=== PATIENT | male | born 1945 | race Caucasian/White ===

== ENCOUNTER 2021-09-29 09:44 | Emergency (ER) | payer MEDICARE, SELFPAY ==
[2021-09-29] VITALS (19 sets, daily range): BP systolic 142–163; BP diastolic 54–102; PULSE 55–78; RESP 12–20; TEMP 36.3; O2SAT 94–99
--- NOTE | ~2021-09-29 | CT_ITS ---
EXAMINATION: CT brain wo con DATE: 09/29/2021 10:54 INDICATION: Increasing confusion TECHNIQUE: Computed tomography (CT) of the head was performed without intravenous contrast. The dose- length product was 605.33 mGy-cm. Automated exposure control and iterative reconstruction technique w ere employed. COMPARISON: None FINDINGS: There is a focal parenchymal hemorrhage at the right parietal vertex. No significant mass e ffect. Mild generalized atrophy. There are scattered mild periventricular and subcortical white matte r changes, most likely related to small vessel ischemic disease (microangiopathy). No ventriculomegal y or midline shift. There is intracranial atherosclerosis. No depressed skull fracture. Paranasal sin uses and mastoids are pneumatized. IMPRESSION: 1. Focal parenchymal hemorrhage near the right parietal vertex. Dr. Michael Prieto discussed with Dr. Nilsa Hargrove PA-C at 09/29/2021 11:17 CDT. Reviewed, dictated and finalized at location A. IMPRESSION: 1. Focal parenchymal hemorrhage near the right parietal vertex. Dr. Michael Prieto discussed with Dr. Nilsa Hargrove PA-C at 09/29/2021 11:1 7 CDT.
--- NOTE | 2021-09-29 09:59 | ECG_ITS ---
Measurements Intervals [place] Rate: 57 P: 40 FL: 189 QRS: -16 QRSD: 107 T: 134 QT: 475 QTc: 466 Interpretive Statements SINUS BRADYCARDIA WITH FREQUENT SUPRAVENTRICULAR PREMATURE COMPLEXES LEFT VENTRICULAR HYPERTROPHY AND ST-T CHANGE [VOLTAGE CRITERIA PLUS ST/T ABNORMALITY] NO PREVIOUS ECG AVAILABLE FOR COMPARISON Electronically Signed On 09-29-2021 11:09:13 CDT by Darrian Orellana M.D.
[2021-09-29 10:09] LABS: Basophils Absolute Auto 0.1 K/mm3 (0.0-0.1); Basophils Percent Auto 0.6 % (0.2-1.2); Eosinophils Absolute Auto 0.1 K/mm3 (0-0.3); Eosinophils Percent Auto 1.1 % (0-4.4); Hematocrit 47.3 % (42.0-52.0); Hemoglobin 15.5 g/dL (14.0-18.0); Immature Granulocyte Absolute 0.04 K/mm3 (0.00-0.031); Immature Granulocyte Percent A 0.4 % (0-0.5); Lymphocytes Absolute Auto 0.78 K/mm3 (0.9-3.2); Lymphocytes Percent Auto 7.6 % (18.3-44.2); Mean Corpuscular HGB Conc 32.8 g/dl (32-36); Mean Corpuscular Hemoglobin 29.2 pg (26-34); Mean Corpuscular Volume 89.1 fl (80-100); Monocytes Absolute Auto 0.6 K/mm3 (0.1-0.6); Monocytes Percent Auto 5.8 % (2.6-8.5); Neutrophils Absolute Auto 8.7 K/mm3 (1.3-6.7); Neutrophils Percent Auto 84.5 % (45.5-73.1); Platelet Count Result 213 k/mm3 (150-375); Red Blood Count 5.31 M/mm3 (4.6-6.20); Red Cell Distribution Width 14.6 % (11.5-14.5); White Blood Count 10.2 K/mm3 (4.5-10.0)
--- NOTE | 2021-09-29 10:10 | ED.AMS ---
HPI - Altered Mental Status General Chief Complaint: Altered Mental Status <Nilsa Hargrove PA-C - Last Filed: 09/29/21 17:25> Stated Complaint: Altered Mental Status <Nilsa Hargrove PA-C - Last Filed: 09/29/21 17:25> Time Seen by Provider: 09/29/21 09:57 <Nilsa Hargrove PA-C - Last Filed: 09/29/21 17:25> History of Present Illness HPI narrative: Patient is a 76-year-old male with a history of diabetes, hypertension, sleep apnea here with his and daughter for evaluation of altered mental status today. History obtained from as patient is not answering questions. states that this morning patient was in the shower for prolonged time, and she found him in the kitchen completely naked dripping wet. He was not answering questions or responding to her, so she brought him in for evaluation. Patient has been reportedly experiencing intermittent episodes of confusion over the past several months or so, and yesterday it was increased from usual. states that patient and her were driving, and patient was not understanding her directional cues and was visibly upset that he was not understanding them. She reports that he has been congested recently, but denies significant preceding illness. Patient ANO x0. <Nilsa Hargrove PA-C - Last Filed: 09/29/21 17:25> Related Data Home Medications: Home Medications Medication Instructions Recorded Confirmed cholecalciferol (vitamin D3) 50 2,000 unit PO DAILY 03/10/19 09/29/21 mcg (2,000 unit) tablet fexofenadine 180 mg tablet 180 mg PO DAILY 03/10/19 09/29/21 (Amy Allergy) xampfucwsvrt-hui-vfubf acid-vit 1 tablet PO DAILY 03/10/19 09/29/21 K-lycop 400 mcg-20 mcg-370 mcg tablet (Men's 50 Plus Multivitamin) saw palmetto 450 mg capsule 450 mg PO BID 03/10/19 09/29/21 nifedipine 90 mg tablet,extended 90 mg PO DAILY 03/14/20 09/29/21 release potassium 99 mg tablet 99 mg PO BID 07/24/21 09/29/21 <TAWANDA Grayson Last Filed: 09/29/21 17:25> Allergies/Adverse Reactions: Allergies Allergy/AdvReac Type Severity Reaction Status Date / Time Penicillins Allergy Unknown Rash Verified 01/11/20 11:27 <Nilsa Hargrove PA-C - Last Filed: 09/29/21 17:25> Review of Systems Review of Systems: ROS unobtainable: Yes unobtainable due to mental status <Nilsa Hargrove PA-C - Last Filed: 09/29/21 17:25> PMFSH Past Medical History Medical History: Medical History Allergies Chicken pox Elevated PSA GERD (gastroesophageal reflux disease) Heart murmur History of hemorrhoids History of pertussis History of tremor HTN (hypertension) Hypokalemia Kidney stones Left ventricular hypertrophy Measles Mumps Overweight Pneumonia Shingles <Nilsa Hargrove PA-C - Last Filed: 09/29/21 17:25> Surgical History Surgical History: Surgical History H/O hernia repair H/O rotator cuff surgery <Nilsa Hargrove PA-C - Last Filed: 09/29/21 17:25> Family History Family History: Family History Father Cerebrovascular accident Mother Heart problem Tremor <Nilsa Hargrove PA-C - Last Filed: 09/29/21 17:25> Social History Social History: Social History Smoking status: Never smoker Smoking end date: 04/20/70 Alcohol intake: never <Nilsa Hargrove PA-C - Last Filed: 09/29/21 17:25> Exam Narrative: APPEARANCE: Well-nourished. Head: normocephalic and atraumatic. EYES: PERRLA/EOMI, conjunctivae clear NOSE: No nasal drainage EARS: External ear normal in appearance THROAT: Oropharynx is clear. Mucous membranes are moist. NECK: Supple. No adenopathy, no masses. RESPIRATORY: Airway patent, respirations nonlabored.
[2021-09-29 10:18] LABS: Alanine Aminotransferase 15 U/L (6-50); Albumin Level 4.5 g/dL (3.5-5.1); Alkaline Phosphatase 80 U/L (38-126); Anion Gap 8 mmol/L (8-16); Aspartate Amino Transferase 21 U/L (17-59); Bilirubin,Total 0.7 mg/dL (0.2-1.3); Blood Urea Nitrogen 33 mg/dL (9-20); Calcium 9.2 mg/dL (8.4-10.2); Carbon Dioxide 26 mmol/L (22-30); Chloride 107 mmol/L (98-107); Estimated Glomerular Filt Rate 49; Glucose 115 mg/dL (65-110); Potassium 3.3 mmol/L (3.4-5.0); Sodium 141 mmol/L (137-145)
[2021-09-29 10:27] LABS: INR 1.1; Prothrombin Time 13.6 Seconds (11.1-14.7)
[2021-09-29 10:28] LABS: Partial Thromboplastin Time 27.8 SECONDS (22.3-36.8)
[2021-09-29 10:40] LABS: Magnesium 1.9 mg/dL (1.6-2.3); Phosphorus 4.4 mg/dL (2.5-4.5)
[2021-09-29 10:53] LABS: Troponin I 0.025 ng/mL (0.000-0.034)
--- NOTE | 2021-09-29 11:18 | PC.NURSE ---
Provider made aware of pt c/o all over pain.
--- NOTE | 2021-09-29 11:29 | PC.NURSE ---
Pt and family made aware of need to transfer. In agreement
[2021-09-29 11:34] LABS: Appearance Urine Clear (Clear); Bilirubin Urine Negative (Negative); Blood Urine Negative (Negative); Color Urine Yellow (Yellow); Glucose Urine UA Negative (Negative); Ketones Urine Negative (Negative); Leukocyte Esterase Ur 1+ LEU/UL (Negative); Nitrate Urine Negative (Negative); Protein Urine 1+ mg/dL (Negative); Urobilinogen Urine 0.2 mg/dL (<2.0); pH Urine 5.5 (5.0-9.0)
[2021-09-29 11:46] LABS: Bacteria Urine Trace /hpf; Mucus Urine Rare /lpf; WBC Clumps Urine Present /HPF; WBC Urine 21-30 /hpf
[2021-09-29 11:47] LABS: Add Urine Microscopic? YES
== END 2021-09-29 12:14 | disposition short-term general hospital (02) ==
LOC: ANHED 10:16
PROVIDERS: Physician Assistant; Emergency Provider General Practice; PCP Internal Medicine
DX: I61.9 Nontraumatic intracerebral hemorrhage, unspecified (principal); E11.9 Type 2 diabetes mellitus without complications; I10 Essential (primary) hypertension; G47.30 Sleep apnea, unspecified; K21.9 Gastro-esophageal reflux disease without esophagitis; Z87.01 Personal history of pneumonia (recurrent); Z87.442 Personal history of urinary calculi; E66.3 Overweight; Z87.891 Personal history of nicotine dependence; I49.1 Atrial premature depolarization; I51.7 Cardiomegaly
CPT/HCPCS: 36415; 51701; 70450; 80053; 81001; 83735; 84100; 84484; 85025; 85610; 85730; 87086; 93005; 99284

== ENCOUNTER 2021-11-28 12:21 | Outpatient (CLI) | payer MEDICARE, SELFPAY ==
--- NOTE | 2021-11-29 12:16 | WPDNEUROLOGY ---
Neurology EEG Report General Information Date of Study: 11/28/21 TEST eeg DIAGNOSIS nontraumatic intracerebral hemorrhage CONDITION OF RECORDING awake drowsy and sleep EEG NUMBER [id number] CLINICAL HISTORY patient is not sure why he is having the test he had something happen couple of months ago that affected his memory his speech and some visual dysfunction as well EEG DESCRIPTION basic resting occipital frequency consists of low to medium voltage 8 to 9 hertz per 2nd alpha admixed with low-voltage to medium voltage 6 to 7 hertz per 2nd theta and low-voltage 15 to 18 hertz per 2nd beta. Bilateral symmetrical sleep activity seen during sleep. Hyperventilation not done. Photic stimulation produced normal drive. Non paroxysmal. Nonfocal. Nonlateralizing. IMPRESSION Normal recall
== END 2021-11-28 12:22 | disposition home or self-care (01) ==
PROVIDERS: PCP Internal Medicine; Visit Provider Psychiatry & Neurology Neurology
DX: I61.9 Nontraumatic intracerebral hemorrhage, unspecified (principal)
CPT/HCPCS: 95816

== ENCOUNTER 2023-04-07 12:42 | Outpatient (CLI) | payer MEDICARE, SELFPAY ==
[2023-04-07 19:54] LABS: Basophils Absolute Auto 0.1 K/mm3 (0.0-0.1); Basophils Percent Auto 1.1 % (0.2-1.2); Eosinophils Absolute Auto 0.1 K/mm3 (0-0.3); Eosinophils Percent Auto 1.6 % (0-4.4); Hematocrit 45.3 % (42.0-52.0); Hemoglobin 14.5 g/dL (14.0-18.0); Immature Granulocyte Absolute 0.03 K/mm3 (0.00-0.031); Immature Granulocyte Percent A 0.3 % (0-0.5); Lymphocytes Absolute Auto 1.12 K/mm3 (0.9-3.2); Lymphocytes Percent Auto 12.7 % (18.3-44.2); Mean Corpuscular Hemoglobin 29.3 pg (26-34); Mean Corpuscular Volume 91.5 fl (80-100); Mean Platelet Volume 10.7 fl (7.4-10.4); Monocytes Absolute Auto 0.8 K/mm3 (0.1-0.6); Monocytes Percent Auto 8.9 % (2.6-8.5); Neutrophils Absolute Auto 6.7 K/mm3 (1.3-6.7); Neutrophils Percent Auto 75.4 % (45.5-73.1); Platelet Count Result 210 k/mm3 (150-375); Red Blood Count 4.95 M/mm3 (4.6-6.20); Red Cell Distribution Width 14.3 % (11.5-14.5); White Blood Count 8.8 K/mm3 (4.5-10.0)
[2023-04-07 20:21] LABS: Alanine Aminotransferase 22 U/L (6-50); Alkaline Phosphatase 81 U/L (38-126); Anion Gap 7 mmol/L (8-16); Aspartate Amino Transferase 31 U/L (17-59); Bilirubin,Total 0.6 mg/dL (0.2-1.3); Blood Urea Nitrogen 24 mg/dL (9-20); Calcium 8.9 mg/dL (8.4-10.2); Carbon Dioxide 25 mmol/L (22-30); Chloride 109 mmol/L (98-107); Estimated Glomerular Filt Rate 49; Glucose 89 mg/dL (65-110); Potassium 3.8 mmol/L (3.4-5.0); Sodium 141 mmol/L (137-145)
== END 2023-04-07 12:43 | disposition home or self-care (01) ==
LOC: ANHGOSHLAB 12:43
PROVIDERS: PCP Internal Medicine; Visit Provider Internal Medicine
DX: F03.90 Unspecified dementia, unspecified severity, without behavioral disturbance, psychotic disturbance, mood disturbance, and anxiety (principal); I48.91 Unspecified atrial fibrillation; I12.9 Hypertensive chronic kidney disease with stage 1 through stage 4 chronic kidney disease, or unspecified chronic kidney disease; N18.9 Chronic kidney disease, unspecified
CPT/HCPCS: 36415; 80053; 85025

== ENCOUNTER 2023-05-25 10:30 | Outpatient (CLI) | payer MEDICARE, SELFPAY ==
--- NOTE | ~2023-05-25 | MR_ITS ---
EXAMINATION: MR brain/brain stem wo/w con DATE: 05/25/2023 11:36 INDICATION: Unspecified dementia. Confusion. TECHNIQUE: Magnetic resonance imaging (MRI) of the brain and brainstem was performed without and with 14 mL MultiHance intravenous contrast. COMPARISON: Head CT 09/29/2021 FINDINGS: There is an old infarct in left temporal occipital region in the expected distribution of l eft posterior cerebral artery. There is an 8 mm lesion in posterior right frontal lobe characterized by central increased T2-weighted signal intensity and peripheral decreased T2 weighted signal intensi ty with old blood products. There are scattered areas of nonspecific increased T2-weighted signal int ensity in the cerebral white matter, bilateral basal ganglia, and tom. There is no acute ischemic in farct. There is an old infarct in the right basal ganglia. There is a developmental venous anomaly in right frontoparietal region. The ventricles are normal size. There is mild mucosal thickening in the ethmoid sinuses. There are likely changes of ocular lens replacement surgeries. There is a small rig ht mastoid effusion. IMPRESSION: 1. 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 2. Old infarct in left temporal occipital region. Old infarct in the right basal ganglia. 3. Moderate nonspecific cerebral white matter disease and disease of the tom and bilateral basal zan glia, which likely represents chronic small vessel ischemic disease. Reviewed, dictated and finalized at location E. CULTURAL TECHNICIAN IMPRESSION: 1. 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 2. Old infarct in left temporal occipital region. Old infarct in the right basa l ganglia. 3. Moderate nonspecific cerebral white matter disease and disease of the tom a nd bilateral basal ganglia, which likely represents chronic small vessel ischem ic disease.
== END 2023-05-25 10:31 | disposition home or self-care (01) ==
PROVIDERS: PCP Internal Medicine; Visit Provider Internal Medicine
DX: F03.90 Unspecified dementia, unspecified severity, without behavioral disturbance, psychotic disturbance, mood disturbance, and anxiety (principal); I69.30 Unspecified sequelae of cerebral infarction; R90.82 White matter disease, unspecified
CPT/HCPCS: 70553; A9577

== ENCOUNTER 2023-08-09 08:09 | Inpatient (IN) | payer MEDICARE, SELFPAY ==
[2023-08-09] VITALS (14 sets, daily range): BP systolic 120–144; BP diastolic 63–76; PULSE 60–100; RESP 15–29; TEMP 36.5–37.2; O2SAT 93–98; BMI 25.7
--- NOTE | ~2023-08-09 | CT_ITS ---
EXAMINATION: CTA brain carotid DATE: 08/09/2023 08:55 CDT INDICATION: Weakness TECHNIQUE: Computed tomographic angiography (CTA) of the head was performed without and with 100 mL O mnipaque-350 intravenous contrast. CTA of the neck was performed with intravenous contrast. The dose- length product was 1031.25 mGy-cm. Maximum intensity projection and volume rendered 3D-reconstruction s were created by the technologist on a separate workstation. Automated exposure control and iterativ e reconstruction technique were employed. COMPARISON: CT head dated 08/09/2023. FINDINGS: HEAD CTA: There is mild intracranial atherosclerosis. No significant stenosis, occlusion, aneurysm is identified. The anterior, middle and posterior cerebral arteries are within normal limits. There is a dominant left vertebral artery. NECK CTA: Mild atherosclerosis. Vertebral arteries are unremarkable. There is a dominant left vertebr al artery. There is 50% stenosis of the proximal right internal carotid artery relative to normal distal artery lumen diameter (NASCET criteria). There is 0% stenosis of the proximal left internal carotid artery r elative to normal distal artery lumen diameter. No evidence for carotid occlusion or dissection. Ther e is atherosclerosis of the aorta. IMPRESSION: 1: No significant intracranial vascular abnormality. 2: No hemodynamically significant stenosis in the carotid arteries. Reviewed, dictated and finalized at location A.
--- NOTE | ~2023-08-09 | CT_ITS ---
EXAMINATION: CT brain wo con DATE: 08/09/2023 08:45 INDICATION: Weakness TECHNIQUE: Computed tomography (CT) of the head was performed without intravenous contrast. The dose- length product was 605.33 mGy-cm. COMPARISON: CT report dated 09/30/2023 and MRI brain dated 05/25/2023 FINDINGS: There is a focal hyperdensity of the right frontal lobe, corresponding to cavernoma seen on prior MRI examination dated 08/09/2023. Generalized atrophy. There are scattered mild periventricular and subcortical white matter changes, most likely related to small vessel ischemic disease (microang iopathy). There is a chronic left occipital lobe infarction. There is intracranial atherosclerosis. N o acute hemorrhage, infarction, mass or mass effect. There is mucosal thickening of the maxillary, et hmoid and sphenoid sinuses. Mastoids are pneumatized. No depressed skull fractures. IMPRESSION: 1. No acute intracranial abnormality. 2: Hyperdense lesion right frontal lobe, consistent with known cavernoma. 3: Chronic left occipital lobe infarction. Reviewed, dictated and finalized at location A.
--- NOTE | ~2023-08-09 | XR_ITS ---
XR chest 1V portable 08/09/2023 08:57 Indication: Weakness Procedure: AP portable chest Comparison: No prior studies for comparison. Findings: Cardiomegaly with interstitial edema. No pleural effusion. No pneumothorax. No acute osseou s abnormality. Impression: 1: Cardiomegaly with interstitial edema. Reviewed, dictated and finalized at location A. Impression: 1: Cardiomegaly with interstitial edema.
--- NOTE | ~2023-08-09 | MR_ITS ---
EXAMINATION: MR brain/brain stem wo con DATE: 08/10/2023 12:57 INDICATION: New focal neurological deficits. TECHNIQUE: Magnetic resonance imaging (MRI) of the brain and brainstem was performed without intraven ous contrast. COMPARISON: Brain MRI 05/25/2023, head CT 08/09/23 FINDINGS: There is old infarct involving left temporal occipital region. There are scattered areas of nonspecific increased T2-weighted signal intensity in the cerebral white matter and tom. There is a n 8 mm lesion of increased T2-weighted signal intensity with surrounding old blood products in right frontal lobe, consistent with a cavernoma. There is a small area of cystic encephalomalacia in the ri ght frontal lobe deep white matter. There is an old infarct in the right basal ganglia. There is no a cute ischemic infarct or abnormal mass lesion. The ventricles are normal in size. There are likely ch anges of ocular lens replacement surgeries. There is mild mucosal thickening in the paranasal sinuses . There are small bilateral mastoid effusions. IMPRESSION: 1. 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 2. Old infarcts involving the left temporal occipital region, right basal ganglia, and right frontal lobe. 3. Stable moderate nonspecific cerebral white matter disease and pontine disease, which likely repres ents chronic small vessel ischemic disease. Reviewed, dictated and finalized at location E. IMPRESSION: 1. 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 2. Old infarcts involving the left temporal occipital region, right basal gangl ia, and right frontal lobe. 3. Stable moderate nonspecific cerebral white matter disease and pontine diseas e, which likely represents chronic small vessel ischemic disease.
--- NOTE | 2023-08-09 08:23 | ECG_ITS ---
SEE SCANNED COPY FOR CONFIRMED REPORT MTDD
[2023-08-09 08:33] LABS: Glucose Point of Care 127 mg/dl (65-105)
[2023-08-09 08:36] LABS: Basophils Percent Auto 0.2 % (0.2-1.2); Hematocrit 39.7 % (42.0-52.0); Hemoglobin 13.2 g/dL (14.0-18.0); Immature Granulocyte Absolute 0.05 K/mm3 (0.00-0.031); Immature Granulocyte Percent A 0.4 % (0-0.5); Lymphocytes Absolute Auto 0.14 K/mm3 (0.9-3.2); Lymphocytes Percent Auto 1.1 % (18.3-44.2); Mean Corpuscular HGB Conc 33.2 g/dl (32-36); Mean Corpuscular Hemoglobin 29.8 pg (26-34); Mean Corpuscular Volume 89.6 fl (80-100); Monocytes Absolute Auto 0.6 K/mm3 (0.1-0.6); Monocytes Percent Auto 4.8 % (2.6-8.5); Neutrophils Absolute Auto 12.4 K/mm3 (1.3-6.7); Neutrophils Percent Auto 93.5 % (45.5-73.1); Platelet Count Result 162 k/mm3 (150-375); Red Blood Count 4.43 M/mm3 (4.6-6.20); Red Cell Distribution Width 14.6 % (11.5-14.5); White Blood Count 13.3 K/mm3 (4.5-10.0)
[2023-08-09 08:37] LABS: Estimated CRCL calculation 31 ml/min; Estimated Glomerular Filt Rate 45
--- NOTE | 2023-08-09 08:38 | ED.NEUROSD ---
HPI - Neuro Symptoms/Deficit General Chief Complaint: Suspected CVA Stated Complaint: left side weakness Time Seen by Provider: 08/09/23 08:26 History of Present Illness HPI Narrative: This is an 78-year-old male, with previous history of stroke with resulting memory problems Eliquis for AFib, presents emergency department complaining of left-sided weakness with suspected stroke. The patient's last known well was approximately 935 last night when went to bed. Family notes when he woke up this morning, he appeared to be unsteady leaning towards his left. The patient has no other complaints at this time. Related Data Home Medications Medication Instructions Recorded Confirmed cholecalciferol (vitamin D3) 50 2,000 unit PO DAILY 03/10/19 08/09/23 mcg (2,000 unit) tablet fexofenadine 180 mg tablet 180 mg PO DAILY 03/10/19 08/09/23 (Amy Allergy) solifenacin 10 mg tablet 10 mg PO DAILY 10/04/21 08/09/23 nifedipine 30 mg tablet,extended 90 mg PO HS 11/14/21 08/09/23 release 24 hr (Procardia XL) mecobalamin (vitamin B12) 500 mcg 500 mcg PO DAILY 08/03/23 08/09/23 chewable tablet multivitamin 1 tablet PO DAILY 08/03/23 08/09/23 apixaban 5 mg tablet (Eliquis) 5 mg PO Q12H 08/09/23 08/09/23 atorvastatin 40 mg tablet 40 mg PO HS 08/09/23 08/09/23 donepezil 10 mg tablet 10 mg PO DAILY 08/09/23 08/09/23 omeprazole 40 mg capsule,delayed 40 mg PO DAILY 08/09/23 08/09/23 release Allergies Allergy/AdvReac Type Severity Reaction Status Date / Time Penicillins Allergy Unknown Rash Verified 08/09/23 13:10 Review of Systems Review of Systems: CONSTITUTIONAL: Denies fever, chills, or sweats. EYES: Denies visual changes, redness, or discharge. ENT: Denies rhinorrhea, congestion, sore throat, or otalgia. CARDIOVASCULAR: Denies chest pain, palpitations, or edema. RESPIRATORY: Denies cough or dyspnea. GASTROINTESTINAL: Denies abdominal pain, nausea, vomiting, or diarrhea. GENITOURINARY: Denies dysuria or hematuria. SKIN: Denies rash or itching. MUSCULOSKELETAL: Denies back pain, joint pain, or myalgia. NEUROLOGIC: Left-sided weakness Denies headache, numbness, dizziness PSYCHIATRIC: Denies anxiety or depression. [facility] Past Medical History Medical History Allergies Atrial fibrillation Benign essential tremor Chicken pox CKD (chronic kidney disease) Dementia Elevated PSA GERD (gastroesophageal reflux disease) Heart murmur History of CVA with residual deficit History of hemorrhoids History of pertussis History of tremor HTN (hypertension) Hypertrophic cardiomyopathy Hypokalemia Kidney stones Left ventricular hypertrophy Measles Mumps Overweight Pneumonia Shingles Surgical History Surgical History H/O hernia repair H/O rotator cuff surgery Family History Family History Father Cerebrovascular accident Mother Heart problem Tremor Social History Social History Smoking status: Former smoker Second hand tobacco smoke exposure: Yes Smoking end date: 04/20/70 Alcohol intake: never Substance use: never Substance use type: does not use Do You Feel Safe in your Home?: Yes Lack of Transportation: No Lack of Food: Never True Current Housing: I Have Housing Concerned About Future Housing: No Difficulty Paying Gas/Electric Bills: No Difficulty Paying for Meds: No Currently Unemployed: No Education: Associate Degree Difficulty w/ Childcare or Family Care: No Spiritual care concerns: No Exam Narrative: GENERAL: Well-developed, well-nourished, and in no acute distress. HEAD: Normocephalic, atraumatic. EYES: PERRLA and EOMI. ENT: Nares clear, no rhinorrhea or epistaxis. Mucous membranes moist. Oropharynx without tonsillar hypertrophy exudate or other lesions. Bilateral TMs pea
[2023-08-09 08:45] LABS: Alanine Aminotransferase 20 U/L (6-50); Albumin Level 3.5 g/dL (3.5-5.1); Alkaline Phosphatase 70 U/L (38-126); Anion Gap 4 mmol/L (4-12); Aspartate Amino Transferase 23 U/L (17-59); Bilirubin,Total 1.1 mg/dL (0.2-1.3); Blood Urea Nitrogen 22 mg/dL (9-20); Calcium 8.5 mg/dL (8.4-10.2); Carbon Dioxide 25 mmol/L (22-30); Chloride 109 mmol/L (98-107); Estimated CRCL calculation 35 ml/min; Estimated Glomerular Filt Rate 53; Glucose 120 mg/dL (65-110); Potassium 3.7 mmol/L (3.4-5.0); Sodium 138 mmol/L (137-145)
[2023-08-09 08:46] LABS: Ethanol < 10 mg/dL (<10)
[2023-08-09 09:01] LABS: Troponin I 0.036 ng/mL (0.000-0.034)
[2023-08-09 09:02] LABS: INR 1.4; Prothrombin Time 18.5 Seconds (11.1-14.7)
[2023-08-09 09:03] LABS: Partial Thromboplastin Time 32.6 Seconds (22.3-36.8)
[2023-08-09 09:27] LABS: Appearance Urine Cloudy (Clear); Bacteria Urine 4+ /hpf; Bilirubin Urine Negative (Negative); Blood Urine 2+ (Negative); Color Urine Dark Yellow (Yellow); Glucose Urine UA Negative (Negative); Ketones Urine Trace mg/dL (Negative); Leukocyte Esterase Ur 3+ LEU/UL (Negative); Nitrate Urine Positive (Negative); Protein Urine 1+ mg/dL (Negative); RBC Urine 51-100 /hpf (0-2); Squamous Epithelial Cell Urine None Seen /hpf (Few); WBC Urine >100 /hpf (0-3); pH Urine 6.5 (5.0-9.0)
[2023-08-09 09:36] LABS: Amphetamine Screen Urine Negative (Negative); Barbiturate Screen Urine Negative (Negative); Benzodiazepines Screen Urine Negative (Negative); Cannabinoid Screen Urine Negative (Negative); Cocaine Screen Urine Negative (Negative); Methadone Screen Urine Negative (Negative); Opiate Screen Urine Negative (Negative); Phencyclidine Screen Urine Negative (Negative)
[2023-08-09 09:52] LABS: Add Urine Microscopic? YES
--- NOTE | 2023-08-09 14:29 | PM.IMHP ---
H&P: HPI History of Present Illness Date/Time: 08/09/23 22:19 Chief Complaint: Weakness Narrative: 78 y/o M presents here with left sided weakness with PMH of CVA (2021; left occipital and left thalamic infarcts with residual changes in spatial awareness, language, short term memory, and R visual deficits), R parietal parenchymal hemorrhage (2021), AFib on Eliquis, ERLIN on CPAP, dementia, CKD, benign essential tremor, HTN, hypertrophic cardiomyopathy, LV hypertrophy, measles, mumps, and GERD. Patient presents here from home for further evaluation of left sided weakness. Per , when patient woke this morning he appeared to be leaning to the left, unsteady and unable to get out of bed. LKN was at 9:35 p.m. last night (08/07). Woke this morning at 8:30 a.m. Has previous history of CVA in 2021 with residual right visual deficits, changes in spatial awareness, changes in language, and worsening short-term memory. Follows with Neurology, believe there may be some dementia component. Per chart review, patient's family member reported concerns that left side was now weak. Patient currently reporting generalized weakness and some gait instability this morning. Endorsing dysuria and urinary frequency. Denies fever, chills, body aches, flank pain, or suprapubic pain. No increased fatigue. Reports symptoms have been resolving over the day and now feels like he is back to his baseline. Denies visual changes or increased dysarthria. Initial VS at presentation: 98.3? F, HR 100, RR 29, 129/76, and 96% on RA. ED workup showed: WBC 13.3, Hgb 13.2, sodium 138, creatinine 1.5 and GFR 45 (previously 1.4 in 03/2023), initial troponin 0.036, UA consistent with UTI, UDS negative. CXR showed cardiomegaly with interstitial edema. Head CT showed chronic findings and no acute intracranial abnormality. Head/neck CTA showed no significant intracranial vascular abnormality and no hemodynamically significant stenosis in the carotid arteries. Review of Systems Review of Systems: All systems reviewed & are unremarkable except as noted in HPI and below [facility] Past Medical History Medical History Allergies Atrial fibrillation Benign essential tremor Chicken pox CKD (chronic kidney disease) Dementia Elevated PSA GERD (gastroesophageal reflux disease) Heart murmur History of CVA with residual deficit History of hemorrhoids History of pertussis History of tremor HTN (hypertension) Hypertrophic cardiomyopathy Hypokalemia Kidney stones Left ventricular hypertrophy Measles Mumps Overweight Pneumonia Shingles Surgical History Surgical History H/O hernia repair H/O rotator cuff surgery Family History Family History Father Cerebrovascular accident Mother Heart problem Tremor Social History Social History Smoking status: Former smoker Second hand tobacco smoke exposure: Yes Smoking end date: 04/20/70 Alcohol intake: never Substance use: never Substance use type: does not use Do You Feel Safe in your Home?: Yes Lack of Transportation: No Lack of Food: Never True Current Housing: I Have Housing Concerned About Future Housing: No Difficulty Paying Gas/Electric Bills: No Difficulty Paying for Meds: No Currently Unemployed: No Education: Associate Degree Difficulty w/ Childcare or Family Care: No Spiritual care concerns: No Meds Home Medications and Allergies Home Medications Medication Instructions Recorded Confirmed Type cholecalciferol (vitamin D3) 50 2,000 unit PO DAILY 03/10/19 08/09/23 History mcg (2,000 unit) tablet fexofenadine 180 mg tablet 180 mg PO DAILY 03/10/19 08/09/23 History (Amy Allergy) solifenacin 10 mg tablet 10 mg PO DAILY 10/04/21 08/09/23 History nifedipine 30 mg tablet,extended 90
--- NOTE | 2023-08-09 15:25 | WPDNEURCNPN ---
Assessment and Plan Assessment and plan (1) Dementia: Qualifiers: Dementia type: unspecified type Dementia severity: moderate Dementia behavioral or psychological symptom: without behavioral, psychotic, or mood disturbance or anxiety Qualified Code(s): F03.B0 - Unspecified dementia, moderate, without behavioral disturbance, psychotic disturbance, mood disturbance, and anxiety Code(s): F03.90 - Unspecified dementia, unspecified severity, without behavioral disturbance, psychotic disturbance, mood disturbance, and anxiety Status: Acute (2) Tremor: Code(s): R25.1 - Tremor, unspecified Status: Acute (3) Atrial fibrillation: Qualifiers: Atrial fibrillation type: persistent (not longstanding) Qualified Code(s): I48.19 - Other persistent atrial fibrillation Code(s): I48.91 - Unspecified atrial fibrillation Status: Acute (4) TIA (transient ischemic attack): Code(s): G45.9 - Transient cerebral ischemic attack, unspecified Status: Acute Plan 1. Ongoing dementia for which he has been evaluated by Dr. Perez in the office has been started on Aricept 10mg daily in addition to checking B12 folate and TSH should continue Aricept as such 2. Atrial fibrillation with CT scan of the head as documented. 3. Thorough discussion with the family regarding the continuation of the medication as such and if extreme concerned about the recurrence of the stroke he can obtain the MRI of the brain but they were counseled given his taking the medication regularly it can happen and there has been no significant change in the medication otherwise. Consult date: 08/09/23 HPI: Phong Car is a 78 year old male admitted to the hospital through the emergency room for the possibility of the stroke involvement of the right hemisphere patient has ongoing history of stroke with memory dysfunction in addition to the underlying atrial fibrillation which he has been taking Eliquis on a regular basis he presented to the ER with left-sided weakness with information that he was approximately at 9:35 a.m. last known normal when he woke up in the morning he was un is steady and leaning towards his left side but has no other complaints. He has been taking his medications regularly which also include Phenergan Zofran a Bg 180mg daily nifedipine 90mg daily and reportedly he is allergic to penicillin . He has ongoing history of multiple medical problems as mentioned above particularly including the atrial fibrillation, benign essential tremor, dementia, history of previous stroke with resultant left-sided deficit, He is a never alcohol intake never substance user and former smoker with ending date April 20, 2070. Initial exam in the emergency room revealed him to have ataxic movements of the left side with right visual field cut. Vital signs were normal, CBC was normal ,routine lab was normal and drug screen was negative. his last MRI of the brain on May 25, 2023 was compatible with chronic lesion in posterior right frontal lobe consistent with a cavernoma, old infarct in left temporal occipital region and in the right basal ganglia with moderate nonspecific white matter disease, repeat CT scan of the head documented the same cavernoma lesion also chronic left occipital lobe infarction but no bleed. Head neck CTA revealed no significant intracranial vascular abnormalities otherwise Review of Systems Review of Systems: All systems reviewed & are unremarkable except as noted in HPI and below Constitutional: Constitutional: Reports excessive sweating PMFSH Past Medical History Medical History Allergies Atrial fibrillation Benign essential tremor Chicken pox CKD (chronic kidney disease) Dementia Elevated PSA GERD (gastroesophageal reflux disease) Heart murmur History of CVA with residual deficit History of hemorrhoids History of pertussis History of ivana
[2023-08-09] MEDS: DONEPEZIL HCL 10 MG TABLET PO (16:03)
[2023-08-09] MEDS: TAMSULOSIN HCL 0.4 MG CAPSULE PO (16:03)
[2023-08-09] MEDS: LACTATED RINGERS 1,000 ML 999 ML IV CONT (16:03)
[2023-08-09] MEDS: CHOLECALCIFEROL 1,000 UNITS TABLET 2000 UNITS PO (16:04)
[2023-08-09] MEDS: MULTIVITAMINS THERAPEUTIC TAB (*BKC) 1 TABLET PO (16:04)
[2023-08-09] MEDS: FINASTERIDE 5 MG TABLET PO (16:04)
[2023-08-09] MEDS: APIXABAN 5 MG TABLET PO (16:04)
[2023-08-09] MEDS: PANTOPRAZOLE 40 MG TABLET PO (16:06)
[2023-08-09] MEDS: SOLIFENACIN 5 MG TABLET 10 MG PO (16:07)
[2023-08-09 16:22] LABS: Procalcitonin 5.3 ng/mL
[2023-08-09] MEDS: ATORVASTATIN 40 MG TABLET PO (21:28)
[2023-08-09] MEDS: NIFEdipine 30 MG TAB.ER.24 90 MG PO (21:28)
[2023-08-10] VITALS (19 sets, daily range): BP systolic 109–140; BP diastolic 56–85; PULSE 62–107; RESP 18–19; TEMP 36.1–36.7; O2SAT 94–99
[2023-08-10 04:07] LABS: Basophils Percent Auto 0.5 % (0.2-1.2); Eosinophils Percent Auto 0.3 % (0-4.4); Hematocrit 41.9 % (42.0-52.0); Hemoglobin 13.3 g/dL (14.0-18.0); Immature Granulocyte Absolute 0.03 K/mm3 (0.00-0.031); Immature Granulocyte Percent A 0.3 % (0-0.5); Lymphocytes Percent Auto 3.4 % (18.3-44.2); Mean Corpuscular HGB Conc 31.7 g/dl (32-36); Mean Corpuscular Hemoglobin 29.1 pg (26-34); Mean Corpuscular Volume 91.7 fl (80-100); Mean Platelet Volume 10.1 fl (7.4-10.4); Monocytes Absolute Auto 0.4 K/mm3 (0.1-0.6); Monocytes Percent Auto 4.5 % (2.6-8.5); Neutrophils Absolute Auto 8.1 K/mm3 (1.3-6.7); Platelet Count Result 162 k/mm3 (150-375); Red Blood Count 4.57 M/mm3 (4.6-6.20); Red Cell Distribution Width 14.6 % (11.5-14.5); White Blood Count 8.9 K/mm3 (4.5-10.0)
[2023-08-10 04:22] LABS: Anion Gap 4 mmol/L (4-12); Blood Urea Nitrogen 24 mg/dL (9-20); Calcium 8.9 mg/dL (8.4-10.2); Carbon Dioxide 26 mmol/L (22-30); Chloride 108 mmol/L (98-107); Cholesterol 101 mg/dL (0-200); Estimated CRCL calculation 40 ml/min; Estimated Glomerular Filt Rate 58; Glucose 135 mg/dL (65-110); HDL Direct 52 mg/dL; Potassium 3.5 mmol/L (3.4-5.0); Sodium 138 mmol/L (137-145); Triglycerides 65 mg/dL (<150)
[2023-08-10 04:33] LABS: LDL Cholesterol Direct 42 mg/dL
[2023-08-10 04:52] LABS: Hemoglobin A1C 5.3 % (<5.7)
[2023-08-10 05:09] LABS: Procalcitonin 5.4 ng/mL
--- NOTE | 2023-08-10 09:41 | WPDNEUROPN ---
Progress Note: A&P Assessment and Plan (1) TIA (transient ischemic attack): Code(s): G45.9 - Transient cerebral ischemic attack, unspecified Status: Acute (2) Acute left-sided weakness: Code(s): R53.1 - Weakness Status: Acute Assessment and Plan: He seems to improve from the left-sided weakness which was described at the time of presentation. (3) Dementia: Qualifiers: Dementia type: unspecified type Dementia severity: moderate Dementia behavioral or psychological symptom: without behavioral, psychotic, or mood disturbance or anxiety Qualified Code(s): F03.B0 - Unspecified dementia, moderate, without behavioral disturbance, psychotic disturbance, mood disturbance, and anxiety Code(s): F03.90 - Unspecified dementia, unspecified severity, without behavioral disturbance, psychotic disturbance, mood disturbance, and anxiety Status: Acute Assessment and Plan: The patient does appear to have mild to moderate degree of dementia. Unable to tell me the month or year or current location or is cleared age. Given the overall picture the possibility body disease need to bony mind particularly in view of features of dementia with mild parkinsonian features and her visual hallucinations. (4) Tremor: Code(s): R25.1 - Tremor, unspecified Status: Acute Assessment and Plan: The tremor for seen at rest and persisted with outstretched hand. These appear mild. However there appears to be some suspicion of cogwheeling is impossible to early Parkinson's disease. If this is part of dementia and possible daily by disease the considered. (5) Atrial fibrillation: Qualifiers: Atrial fibrillation type: persistent (not longstanding) Qualified Code(s): I48.19 - Other persistent atrial fibrillation Code(s): I48.91 - Unspecified atrial fibrillation Status: Acute Assessment and Plan: Patient is on Eliquis. (6) History of CVA with residual deficit: Code(s): I69.30 - Unspecified sequelae of cerebral infarction Status: Acute (7) Visual hallucinations: Code(s): R44.1 - Visual hallucinations Status: Acute Assessment and Plan: Apparently a new problem. Patient describes clear reason has phonation and states that he can not even name thinks he is seeing. This happens in the evening. Although hallucinations can be part of the dementia and particularly in this gentleman who has had a left occipital area infarct other possibilities need to be borne in mind. He was started on Aricept recently sometimes nightmares can occur from this medication. It is difficult for me to distinguish with his describing a nightmare or visual hallucinations. Hence we can hold off Aricept and put him on Namenda for now. He was previous on axial on the apparent did not help and was very expensive and hence this was changed over to Aricept recently. Plan The patient is on statins and Eliquis from cerebrovascular disease point of view. 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 At this time I will suggest to discontinue Aricept and put him on Namenda continue the above medications. She also check his serum B12 and folic acid level and thyroid function tests vitamin-D level. He may require some antidepressant later on and close follow-up with Neurology in view of the numerous problems noted above. Subjective Date/time seen: 08/10/23 09:41 Interval history: Patient describes that he saw something that nose was not there and most likely hallucinations. He is aware of the fact that he has been having visual hallucinations. He is also forgetful and has poor balance and difficulty walking. It was noted that his somewhat tremulous. He has history of dementia diagnosed recently and has seen Dr. Perez and started on Aricept. Also history of atrial fibrillation. He came with a presentation of weak
[2023-08-10] MEDS: DONEPEZIL HCL 10 MG TABLET PO (09:51)
[2023-08-10] MEDS: SOLIFENACIN 5 MG TABLET 10 MG PO (09:51)
[2023-08-10] MEDS: LORATADINE 10 MG TABLET PO (09:52)
[2023-08-10] MEDS: PANTOPRAZOLE 40 MG TABLET PO ×2 (09:52→16:12)
[2023-08-10] MEDS: TAMSULOSIN HCL 0.4 MG CAPSULE PO (09:52)
[2023-08-10] MEDS: APIXABAN 5 MG TABLET PO ×2 (09:52→20:56)
[2023-08-10] MEDS: FINASTERIDE 5 MG TABLET PO (09:52)
[2023-08-10] MEDS: CHOLECALCIFEROL 1,000 UNITS TABLET 2000 UNITS PO (09:52)
[2023-08-10] MEDS: MULTIVITAMINS THERAPEUTIC TAB (*BKC) 1 TABLET PO (09:52)
[2023-08-10] MEDS: CYANOCOBALAMIN 500 MCG TABLET PO (09:52)
[2023-08-10] MEDS: PERFLUTREN LIPID MICROSPHERES 1.5 ML VIAL DILUTED TO 10 ML TOTAL VOLUME IV PUSH (10:40)
[2023-08-10 11:01] LABS: T4 Thyroxine 6.01 ug/dL (5.53-11.0)
[2023-08-10 11:02] LABS: Vitamin D 25 Hydroxy 44.8 ng/mL
[2023-08-10 11:50] LABS: Folic Acid 9.8 ng/mL (2.76->20)
--- NOTE | 2023-08-10 14:51 | ECHO_ITS ---
Patient Info Name: Phong Car Age: 78 years : 1945 Gender: Male Ht: 66 in Wt: 159 lbs BSA: 1.84 m2 HR: 64 bpm BP: 109 / 64 mmHg Technical Quality: Fair Exam Date: 08/10/2023 10:43 AM Exam Location: [facility] Patient Status: Inpatient Admit Date: 08/10/2023 Staff Ordering Physician: Fernanda Cook APRN Warp Tension Tester: Manny Doty RDCS Attending Provider: Tory Lorenzo MD Referring Physician: Joey PILLAI; Exam Type: CA echo dop bubble study w con Study Info Complete two-dimentional, color flow and Doppler transthoracic echocardiogram is performed with agitated saline and with contrast to opacify the left ventricle and to improve the delineation of the left ventricle endocardial borders. Contrast/Agitated Saline Contrast/Ag. Saline: Agitated Saline Amount: 14.00 ml Contrast/Ag. Saline: Definity Amount: 2.00 ml Summary 1. Definity contrast administered improved wall motion interpretation. 2. Left ventricular chamber dimension is normal. 3. Left ventricular systolic function is normal, estimated at 60-65%. 4. There is severe asymmetric septal increased left ventricular wall thickness. 5. The left ventricular diastolic function is indeterminate. 6. Left atrial chamber dimension is severely enlarged. 7. There is trace mitral valve regurgitation. 8. There is mild tricuspid valve regurgitation. 9. No pulmonary hypertension, estimated pulmonary arterial systolic pressure is 39 mmHg. 10. Normal inferior vena cava with <50% collapse upon inspiration consistent with elevated right atrial pressure, 10 mmHg. 11. There is small circumferential pericardial effusion. 12. No cardiac tamponade. Left Ventricle Tissue doppler E/e' is not performed. Definity contrast administered improved wall motion interpretation. Left ventricular chamber dimension is normal. Left ventricular systolic function is normal, estimated at 60-65%. There is severe asymmetric septal increased left ventricular wall thickness. The left ventricular diastolic function is indeterminate. Right Ventricle Right ventricular chamber dimension is normal. Right ventricular systolic function is normal. Left Atria Left atrial chamber dimension is severely enlarged. Right Atria Right atrial chamber dimension is normal. Atrial Septum Agitated saline injection with and without valsalva maneuver opacified right side cardiac chambers without shunt to left side cardiac chambers. Intact interatrial septum visualized by 2D and agitated saline imaging. Aortic Valve The aortic valve is trileaflet. There is no aortic valve stenosis. There is no aortic valve regurgitation. Pulmonic Valve There is no pulmonic regurgitation. Mitral Valve There is no mitral valve stenosis. There is trace mitral valve regurgitation. Tricuspid Valve There is mild tricuspid valve regurgitation. No pulmonary hypertension, estimated pulmonary arterial systolic pressure is 39 mmHg. Pericardium/Pleural There is small circumferential pericardial effusion. No cardiac tamponade. Inferior Vena Cava Normal inferior vena cava with <50% collapse upon inspiration consistent with elevated right atrial pressure, 10 mmHg. Aorta The aortic root size at the sinus of Valsalva is normal. Left Ventricular Outflow Tract Name Value Normal LVOT 2D
--- NOTE | 2023-08-10 16:52 | PM.IMPN ---
Progress Note: A&P Assessment and Plan (1) Sepsis: Code(s): A41.9 - Sepsis, unspecified organism Status: Acute (2) Acute left-sided weakness: Code(s): R53.1 - Weakness Status: Acute (3) Acute UTI: Code(s): N39.0 - Urinary tract infection, site not specified Status: Acute (4) Atrial fibrillation: Qualifiers: Atrial fibrillation type: persistent (not longstanding) Qualified Code(s): I48.19 - Other persistent atrial fibrillation Code(s): I48.91 - Unspecified atrial fibrillation Status: Acute (5) CKD (chronic kidney disease): Qualifiers: Chronic kidney disease stage: stage 3 (moderate) Chronic kidney disease stage 3 subtype: stage 3a (GFR 45-59) Qualified Code(s): N18.31 - Chronic kidney disease, stage 3a Code(s): N18.9 - Chronic kidney disease, unspecified Status: Acute (6) Hypertension: Qualifiers: Hypertension type: primary hypertension Qualified Code(s): I10 - Essential (primary) hypertension Code(s): I10 - Essential (primary) hypertension Status: Acute Plan This is an 78-year-old male with previous history of stroke and dementia atrial fibrillation on chronic anticoagulation presents to the ER complaining of left-sided weakness with suspected stroke. He was last known well approximately 935 last night when he went to bed. Family reported that he woke up this morning and appeared to be unsteady leaning towards his left and hence was brought to the ED for further evaluation. In the ED his vitals were stable he has baseline visual field deficits and dysarthria from previous stroke. Left-sided ataxia noted on arrival to the ED. CT scan of the brain showed no acute intracranial abnormality however there is no on hyperdensity in the right frontal lobe consistent with cavernoma as well as chronic changes consistent with left occipital lobe ischemia. Head CTA showed no significant intracranial vascular abnormality and no hemodynamically significant stenosis in the carotid arteries. Neurology was consulted. Laboratory evaluation revealed mild leukocytosis of 13.3 hemoglobin of 13.2 platelet a 162. Troponin mildly elevated at 0.036 procalcitonin of 5.3 fell alcohol less than 10 creatinine of 1.5 UA was positive for UTI with more than 100 WBC 50 1-100 RBC positive nitrate and leukocyte esterase. Urine drug screen negative. EKG showed atrial fibrillation with no acute ST-T changes. Was admitted for further treatment UTI received IV fluids started on ceftriaxone follow-up blood culture. Leukocytosis resolved Left-sided weakness new not a candidate for thrombolytics or thrombectomy MRI brain is planned Neurology consulted PT OT ST to see already on Eliquis which will be continued. Lipid profile with LDL 42 A1c is at 5.3. Brain MRI showed chronic lesion in the posterior right frontal lobe consistent with cavernoma old infarct involving the left temporal occipital region right basal ganglia and right frontal lobe. Stable moderate nonspecific cerebral white matter disease and bone time disease was likely represent chronic small vessel ischemic disease. Bacteremia: G negative bacilli isolated in the blood on 08/09/2023. Will increase the dose of Rocephin to 2 g Left-sided weakness with history of stroke left occipital and left thalamic infarct with residual changes in speech past Cl awareness language short-term memory and right visual deficits Right parietal parenchymal hemorrhage in 2021 Atrial fibrillation on Eliquis rate controlled ERLIN on CPAP Dementia CKD stage 3 creatinine 1.5 baseline around the same Benign essential tremor Hypertension Hypertrophic cardiomyopathy GERD Code status do not resuscitate DVT prophylaxis Eliquis Subjective Date/time seen: 08/10/23 16:52 Interval history: Chart reviewed. No new complaints. Does not know why he is here. Review of Systems Review of Systems: All systems reviewed & are un
[2023-08-10] MEDS: ATORVASTATIN 40 MG TABLET PO (20:56)
[2023-08-10] MEDS: NIFEdipine 30 MG TAB.ER.24 90 MG PO (20:56)
[2023-08-11] VITALS (13 sets, daily range): BP systolic 117–151; BP diastolic 55–72; PULSE 81–107; RESP 17–24; TEMP 36.6–37.2; O2SAT 92–95
[2023-08-11 04:51] LABS: Basophils Absolute Auto 0.1 K/mm3 (0.0-0.1); Basophils Percent Auto 0.5 % (0.2-1.2); Eosinophils Absolute Auto 0.1 K/mm3 (0-0.3); Eosinophils Percent Auto 0.7 % (0-4.4); Hematocrit 44.6 % (42.0-52.0); Hemoglobin 14.6 g/dL (14.0-18.0); Immature Granulocyte Absolute 0.07 K/mm3 (0.00-0.031); Immature Granulocyte Percent A 0.6 % (0-0.5); Lymphocytes Absolute Auto 0.64 K/mm3 (0.9-3.2); Lymphocytes Percent Auto 5.2 % (18.3-44.2); Mean Corpuscular HGB Conc 32.7 g/dl (32-36); Mean Corpuscular Hemoglobin 29.2 pg (26-34); Mean Corpuscular Volume 89.2 fl (80-100); Mean Platelet Volume 10.2 fl (7.4-10.4); Monocytes Percent Auto 8.2 % (2.6-8.5); Neutrophils Absolute Auto 10.4 K/mm3 (1.3-6.7); Neutrophils Percent Auto 84.8 % (45.5-73.1); Platelet Count Result 159 k/mm3 (150-375); Red Cell Distribution Width 14.6 % (11.5-14.5); White Blood Count 12.3 K/mm3 (4.5-10.0)
[2023-08-11 05:02] LABS: Alanine Aminotransferase 26 U/L (6-50); Albumin Level 3.9 g/dL (3.5-5.1); Alkaline Phosphatase 73 U/L (38-126); Anion Gap 7 mmol/L (4-12); Aspartate Amino Transferase 32 U/L (17-59); Bilirubin,Total 0.6 mg/dL (0.2-1.3); Blood Urea Nitrogen 25 mg/dL (9-20); Calcium 8.9 mg/dL (8.4-10.2); Carbon Dioxide 24 mmol/L (22-30); Chloride 108 mmol/L (98-107); Estimated CRCL calculation 40 ml/min; Estimated Glomerular Filt Rate 58; Glucose 136 mg/dL (65-110); Potassium 3.6 mmol/L (3.4-5.0); Sodium 139 mmol/L (137-145)
[2023-08-11 05:35] LABS: Procalcitonin 3.1 ng/mL
--- NOTE | 2023-08-11 07:59 | IVDEFINITY ---
Prior to administration of IV Definity the patient was educated on the risks and benefits of the imaging enhancing agent including potential adverse side effects. The patient verbalized understanding. Allergies were verified. No exclusion criteria were identified and at least one of the following inclusion criteria were met: 1) physician request, 2) patient technically difficult to image (per the [place] [employer] guidelines of two or more segments not discernable within the apical view), or 3) questionable left ventricular function. ?
[2023-08-11] MEDS: APIXABAN 5 MG TABLET PO ×2 (09:44→20:14)
[2023-08-11] MEDS: SOLIFENACIN 5 MG TABLET 10 MG PO (09:45)
[2023-08-11] MEDS: LORATADINE 10 MG TABLET PO (09:45)
[2023-08-11] MEDS: CHOLECALCIFEROL 1,000 UNITS TABLET 2000 UNITS PO (09:45)
[2023-08-11] MEDS: TAMSULOSIN HCL 0.4 MG CAPSULE PO (09:45)
[2023-08-11] MEDS: FINASTERIDE 5 MG TABLET PO (09:45)
[2023-08-11] MEDS: PANTOPRAZOLE 40 MG TABLET PO ×2 (09:46→17:09)
[2023-08-11] MEDS: CYANOCOBALAMIN 500 MCG TABLET PO (09:46)
[2023-08-11] MEDS: MEMANTINE 5 MG TABLET PO (09:46)
[2023-08-11] MEDS: MULTIVITAMINS THERAPEUTIC TAB (*BKC) 1 TABLET PO (09:46)
--- NOTE | 2023-08-11 10:19 | PM.IMPN ---
Progress Note: A&P Assessment and Plan (1) Sepsis: Code(s): A41.9 - Sepsis, unspecified organism Status: Acute (2) Acute left-sided weakness: Code(s): R53.1 - Weakness Status: Acute (3) Acute UTI: Code(s): N39.0 - Urinary tract infection, site not specified Status: Acute (4) Atrial fibrillation: Qualifiers: Atrial fibrillation type: persistent (not longstanding) Qualified Code(s): I48.19 - Other persistent atrial fibrillation Code(s): I48.91 - Unspecified atrial fibrillation Status: Acute (5) CKD (chronic kidney disease): Qualifiers: Chronic kidney disease stage: stage 3 (moderate) Chronic kidney disease stage 3 subtype: stage 3a (GFR 45-59) Qualified Code(s): N18.31 - Chronic kidney disease, stage 3a Code(s): N18.9 - Chronic kidney disease, unspecified Status: Acute (6) Hypertension: Qualifiers: Hypertension type: primary hypertension Qualified Code(s): I10 - Essential (primary) hypertension Code(s): I10 - Essential (primary) hypertension Status: Acute Plan This is an 78-year-old male with previous history of stroke and dementia atrial fibrillation on chronic anticoagulation presents to the ER complaining of left-sided weakness with suspected stroke. He was last known well approximately 935 last night when he went to bed. Family reported that he woke up this morning and appeared to be unsteady leaning towards his left and hence was brought to the ED for further evaluation. In the ED his vitals were stable he has baseline visual field deficits and dysarthria from previous stroke. Left-sided ataxia noted on arrival to the ED. CT scan of the brain showed no acute intracranial abnormality however there is no on hyperdensity in the right frontal lobe consistent with cavernoma as well as chronic changes consistent with left occipital lobe ischemia. Head CTA showed no significant intracranial vascular abnormality and no hemodynamically significant stenosis in the carotid arteries. Neurology was consulted. Laboratory evaluation revealed mild leukocytosis of 13.3 hemoglobin of 13.2 platelet a 162. Troponin mildly elevated at 0.036 procalcitonin of 5.3 fell alcohol less than 10 creatinine of 1.5 UA was positive for UTI with more than 100 WBC 50 1-100 RBC positive nitrate and leukocyte esterase. Urine drug screen negative. EKG showed atrial fibrillation with no acute ST-T changes. Was admitted for further treatment UTI received IV fluids started on ceftriaxone follow-up blood culture. Blood culture positive for E coli. Sensitivity pending. Continue on ceftriaxone as ordered. Procalcitonin level is decreasing. Left-sided weakness new not a candidate for thrombolytics or thrombectomy MRI brain is planned Neurology consulted PT OT ST to see already on Eliquis which will be continued. Lipid profile with LDL 42 A1c is at 5.3. Brain MRI showed chronic lesion in the posterior right frontal lobe consistent with cavernoma old infarct involving the left temporal occipital region right basal ganglia and right frontal lobe. Stable moderate nonspecific cerebral white matter disease and bone time disease was likely represent chronic small vessel ischemic disease. Overall negative for any acute stroke Bacteremia: G negative bacilli isolated in the blood on 08/09/2023. Started on Rocephin 2 g daily. Repeat blood culture pending today Left-sided weakness with history of stroke left occipital and left thalamic infarct with residual changes in speech spatial awareness language short-term memory and right visual deficits Right parietal parenchymal hemorrhage in 2021 Atrial fibrillation on Eliquis rate controlled ERLIN on CPAP Dementia neurology has switched his Aricept to Namenda CKD stage 3 creatinine 1.5 baseline around the same Benign essential tremor Hypertension Hypertrophic cardiomyopathy GERD Code status do not resuscitate DVT prophylaxis
[2023-08-11] MEDS: cefTRIAXone 2 GM/NS 100 ML 2 GM/100 ML BAG IVPB (17:10)
[2023-08-11 20:05] LABS: Glucose Point of Care 166 mg/dl (65-105)
[2023-08-11] MEDS: ATORVASTATIN 40 MG TABLET PO (20:14)
[2023-08-11] MEDS: NIFEdipine 30 MG TAB.ER.24 90 MG PO (20:14)
--- NOTE | 2023-08-11 23:11 | PC.NURSE ---
This patient, Phong Car, was transferred to [[facility]] on 08/11/23 at 2305. Personal belongings sent with patient. Report given to [BREANNA Saba]. Appropriate documentation sent with patient.
[2023-08-12 00:30] VITALS: PULSE 99; O2SAT 96
[2023-08-12 07:10] LABS: Basophils Absolute Auto 0.1 K/mm3 (0.0-0.1); Basophils Percent Auto 0.7 % (0.2-1.2); Eosinophils Absolute Auto 0.1 K/mm3 (0-0.3); Eosinophils Percent Auto 1.9 % (0-4.4); Hematocrit 41.8 % (42.0-52.0); Hemoglobin 13.6 g/dL (14.0-18.0); Immature Granulocyte Absolute 0.06 K/mm3 (0.00-0.031); Immature Granulocyte Percent A 0.8 % (0-0.5); Lymphocytes Absolute Auto 0.81 K/mm3 (0.9-3.2); Lymphocytes Percent Auto 10.7 % (18.3-44.2); Mean Corpuscular HGB Conc 32.5 g/dl (32-36); Mean Corpuscular Hemoglobin 29.4 pg (26-34); Mean Corpuscular Volume 90.3 fl (80-100); Mean Platelet Volume 10.7 fl (7.4-10.4); Monocytes Absolute Auto 0.7 K/mm3 (0.1-0.6); Monocytes Percent Auto 9.8 % (2.6-8.5); Neutrophils Absolute Auto 5.8 K/mm3 (1.3-6.7); Neutrophils Percent Auto 76.1 % (45.5-73.1); Platelet Count Result 157 k/mm3 (150-375); Red Blood Count 4.63 M/mm3 (4.6-6.20); Red Cell Distribution Width 14.6 % (11.5-14.5); White Blood Count 7.6 K/mm3 (4.5-10.0)
[2023-08-12 07:25] LABS: Alanine Aminotransferase 23 U/L (6-50); Albumin Level 3.5 g/dL (3.5-5.1); Alkaline Phosphatase 67 U/L (38-126); Anion Gap 6 mmol/L (4-12); Aspartate Amino Transferase 23 U/L (17-59); Bilirubin,Total 0.5 mg/dL (0.2-1.3); Blood Urea Nitrogen 24 mg/dL (9-20); Calcium 8.8 mg/dL (8.4-10.2); Carbon Dioxide 23 mmol/L (22-30); Chloride 110 mmol/L (98-107); Estimated CRCL calculation 37 ml/min; Estimated Glomerular Filt Rate 53; Glucose 116 mg/dL (65-110); Magnesium 2.1 mg/dL (1.6-2.3); Potassium 3.6 mmol/L (3.4-5.0); Sodium 139 mmol/L (137-145)
[2023-08-12 08:00] VITALS: BP 134/76; PULSE 92; RESP 18; TEMP 36.9; O2SAT 96
[2023-08-12] MEDS: TAMSULOSIN HCL 0.4 MG CAPSULE PO (09:42)
[2023-08-12] MEDS: FINASTERIDE 5 MG TABLET PO (09:42)
[2023-08-12] MEDS: MULTIVITAMINS THERAPEUTIC TAB (*BKC) 1 TABLET PO (09:42)
[2023-08-12] MEDS: MEMANTINE 5 MG TABLET PO (09:42)
[2023-08-12] MEDS: CYANOCOBALAMIN 500 MCG TABLET PO (09:42)
[2023-08-12] MEDS: LORATADINE 10 MG TABLET PO (09:42)
[2023-08-12] MEDS: CHOLECALCIFEROL 1,000 UNITS TABLET 2000 UNITS PO (09:42)
[2023-08-12] MEDS: PANTOPRAZOLE 40 MG TABLET PO ×2 (09:42→17:26)
[2023-08-12] MEDS: SOLIFENACIN 5 MG TABLET 10 MG PO (09:42)
[2023-08-12] MEDS: APIXABAN 5 MG TABLET PO ×2 (09:44→20:57)
[2023-08-12 16:00] VITALS: BP 115/67; PULSE 98; RESP 18; TEMP 36.8; O2SAT 98
[2023-08-12] MEDS: cefTRIAXone 2 GM/NS 100 ML 2 GM/100 ML BAG IVPB (18:38)
--- NOTE | 2023-08-12 19:34 | P.PNIM_ITS ---
Progress Note: A&P Assessment and Plan (1) Sepsis: Code(s): A41.9 - Sepsis, unspecified organism Status: Acute (2) Acute left-sided weakness: Code(s): R53.1 - Weakness Status: Acute (3) Acute UTI: Code(s): N39.0 - Urinary tract infection, site not specified Status: Acute (4) Atrial fibrillation: Qualifiers: Atrial fibrillation type: persistent (not longstanding) Qualified Code(s): I48.19 - Other persistent atrial fibrillation Code(s): I48.91 - Unspecified atrial fibrillation Status: Acute (5) CKD (chronic kidney disease): Qualifiers: Chronic kidney disease stage: stage 3 (moderate) Chronic kidney disease stage 3 subtype: stage 3a (GFR 45-59) Qualified Code(s): N18.31 - Chronic kidney disease, stage 3a Code(s): N18.9 - Chronic kidney disease, unspecified Status: Acute (6) Hypertension: Qualifiers: Hypertension type: primary hypertension Qualified Code(s): I10 - Essential (primary) hypertension Code(s): I10 - Essential (primary) hypertension Status: Acute Plan This is an 78-year-old male with previous history of stroke and dementia atrial fibrillation on chronic anticoagulation presents to the ER complaining of left- sided weakness with suspected stroke. He was last known well approximately 935 last night when he went to bed. Family reported that he woke up this morning and appeared to be unsteady leaning towards his left and hence was brought to the ED for further evaluation. In the ED his vitals were stable he has baseline visual field deficits and dysarthria from previous stroke. Left-sided ataxia noted on arrival to the ED. CT scan of the brain showed no acute intracranial abnormality however there is no on hyperdensity in the right frontal lobe consistent with cavernoma as well as chronic changes consistent with left occipital lobe ischemia. Head CTA showed no significant intracranial vascular abnormality and no hemodynamically significant stenosis in the carotid arteries. Neurology was consulted. Laboratory evaluation revealed mild leukocytosis of 13.3 hemoglobin of 13.2 platelet a 162. Troponin mildly elevated at 0.036 procalcitonin of 5.3 fell alcohol less than 10 creatinine of 1.5 UA was positive for UTI with more than 100 WBC 50 1-100 RBC positive nitrate and leukocyte esterase. Urine drug screen negative. EKG showed atrial fibrillation with no acute ST-T changes. Was admitted for further treatment UTI received IV fluids started on ceftriaxone follow-up blood culture. Blood c ulture positive for E coli. Sensitivity pending. Continue on ceftriaxone as ordered. Procalcitonin level is decreasing. Left-sided weakness new not a candidate for thrombolytics or thrombectomy MRI brain is planned Neurology consulted PT OT ST to see already on Eliquis which will be continued. Lipid profile with LDL 42 A1c is at 5.3. Brain MRI showed chronic lesion in the posterior right frontal lobe consistent with cavernoma old infarct involving the left temporal occipital region right basal ganglia and right frontal lobe. Stable moderate nonspecific cerebral white matter disease and bone time disease was likely represent chronic small vessel ischemic disease. Overall negative for any acute stroke Bacteremia: G negative bacilli isolated in the blood on 08/09/2023. Started on Rocephin 2 g daily. Repeat blood culture pending today Left-sided weakness with history of stroke left occipital and left thalamic infarct with residual changes in speech spatial awareness language short-term memory and right visual deficits Right parietal parenchymal hemorrhage in 2021 Atrial fibr
[2023-08-12] MEDS: ATORVASTATIN 40 MG TABLET PO (20:57)
[2023-08-12] MEDS: NIFEdipine 30 MG TAB.ER.24 90 MG PO (20:57)
[2023-08-12 23:00] VITALS: PULSE 94; O2SAT 96
[2023-08-13] VITALS: BP 129/89; PULSE 77; RESP 14; TEMP 36.7; O2SAT 98
[2023-08-13 02:08] VITALS: O2SAT 95
[2023-08-13 06:23] LABS: Anion Gap 6 mmol/L (4-12); Blood Urea Nitrogen 28 mg/dL (9-20); Calcium 8.8 mg/dL (8.4-10.2); Carbon Dioxide 24 mmol/L (22-30); Chloride 108 mmol/L (98-107); Estimated CRCL calculation 32 ml/min; Estimated Glomerular Filt Rate 45; Glucose 120 mg/dL (65-110); Potassium 3.4 mmol/L (3.4-5.0); Sodium 138 mmol/L (137-145)
[2023-08-13 08:32] VITALS: BP 136/85; PULSE 62; RESP 18; TEMP 36.9; O2SAT 93
[2023-08-13] MEDS: MULTIVITAMINS THERAPEUTIC TAB (*BKC) 1 TABLET PO (09:14)
[2023-08-13] MEDS: MEMANTINE 5 MG TABLET PO (09:15)
[2023-08-13] MEDS: SOLIFENACIN 5 MG TABLET 10 MG PO (09:15)
[2023-08-13] MEDS: FINASTERIDE 5 MG TABLET PO (09:15)
[2023-08-13] MEDS: PANTOPRAZOLE 40 MG TABLET PO (09:15)
[2023-08-13] MEDS: LORATADINE 10 MG TABLET PO (09:15)
[2023-08-13] MEDS: CHOLECALCIFEROL 1,000 UNITS TABLET 2000 UNITS PO (09:15)
[2023-08-13] MEDS: TAMSULOSIN HCL 0.4 MG CAPSULE PO (09:15)
[2023-08-13] MEDS: APIXABAN 5 MG TABLET PO (09:15)
[2023-08-13] MEDS: CYANOCOBALAMIN 500 MCG TABLET PO (09:15)
[2023-08-13] MEDS: POTASSIUM CHLORIDE 20 MEQ PACKET (FOR LIQUID) 40 MEQ PO (09:24)
[2023-08-13 13:35] VITALS: BP 134/70; PULSE 77; RESP 17; TEMP 37.1; O2SAT 96
--- NOTE | 2023-08-13 15:58 | PM.DS ---
DS: Admitting Diagnosis Discharge Date 08/13/23 Admitting Diagnosis Weakness DS: Discharge Diagnosis Discharge Diagnosis (1) Sepsis: Code(s): A41.9 - Sepsis, unspecified organism Status: Acute (2) Acute left-sided weakness: Code(s): R53.1 - Weakness Status: Acute (3) Acute UTI: Code(s): N39.0 - Urinary tract infection, site not specified Status: Acute (4) Atrial fibrillation: Qualifiers: Atrial fibrillation type: persistent (not longstanding) Qualified Code(s): I48.19 - Other persistent atrial fibrillation Code(s): I48.91 - Unspecified atrial fibrillation Status: Acute (5) CKD (chronic kidney disease): Qualifiers: Chronic kidney disease stage: stage 3 (moderate) Chronic kidney disease stage 3 subtype: stage 3a (GFR 45-59) Qualified Code(s): N18.31 - Chronic kidney disease, stage 3a Code(s): N18.9 - Chronic kidney disease, unspecified Status: Acute (6) Hypertension: Qualifiers: Hypertension type: primary hypertension Qualified Code(s): I10 - Essential (primary) hypertension Code(s): I10 - Essential (primary) hypertension Status: Acute DS: Summary Hospital Course Reason for hospitalization: 78yo male with dementia, HTN, CKD and CMP here for weakness. Please see H&P for details. Hospital Course: Patient presents with left-sided weakness with suspected stroke. Left-sided ataxia noted on arrival to the ED. CT scan of the brain showed no acute intracranial abnormality however there is no on hyperdensity in the right frontal lobe consistent with cavernoma as well as chronic changes consistent with left occipital lobe ischemia. Head CTA showed no significant intracranial vascular abnormality and no hemodynamically significant stenosis in the carotid arteries. Neurology was consulted. UA was positive for UTI. Urine drug screen negative. EKG showed atrial fibrillation with no acute ST-T changes. He received IV fluids and started on ceftriaxone. Blood and urine cultures positive for E coli. Patient worked with PT/OT/ST. EColi bacteremia from a urinary source. Left sided weakness noted but brain MRI showing no acute findings. 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 Repeat BCx remain negative. He was up walking in the room. He overall did well and was able to be discharged on 08/13/23 Status at Discharge Cognitive/behavioral status at discharge: stable Time Spent with Patient Time attestation: Total time spent providing and/or coordinating discharge services: 35 minutes Time spent: Greater than 30 minutes Exam Narrative: AF 98.7 134/70 77 17 96% ra Gen - NARD Chest - CTA bilaterally, nml RR CV - irregularly irregular Abd - Soft, NT/ND, Positive BS Ext - No pedal edema Neuro - Alert but confused Psych - Nml mood and affect Skin - Warm and dry DS: Data Data Completed and Pending Labs on day of discharge: Labs from last 24 hours 08/13/23 05:51 Sodium 138 Potassium 3.4 Chloride 108 H Carbon Dioxide 24 Anion Gap 6 BUN 28 H Creatinine 1.50 H Estim Creat Clear Calc 32 Estimated GFR 45 L Glucose 120 H Calcium 8.8 Preliminary micro results at discharge 08/11/23 04:43 Blood Culture - Preliminary Blood 08/11/23 04:43 Blood Culture - Preliminary Blood 08/09/23 10:10 Blood Culture - Preliminary Blood Discharge Plan Discharge Attending physician on discharge: Mariano Muniz Consulting providers: Mazin Carrasco Discharging Clinician: Mariano Muniz Anticipated Discharge Date/Time: 08/13/23 16:08 Patient Disposition: Home Health Service Activity: as tolerated Diet: heart healthy Discharge Instructions: Please complete your antibiotic course even if you are starting to feel well. -- Levaquin 750mg every odd day in the evening sta
== END 2023-08-13 17:21 | disposition home health service (06) | DRG 690 ==
LOC: ANHED 10:14 → ANHIMU 10:49 → ANH3MEDSUR 08-11 23:12
PROVIDERS: Internal Medicine; Psychiatry & Neurology Neurology; Student in an Organized Health Care Education/Training Program; Admitting Provider General Practice; Emergency Provider Preventive Medicine Aerospace Medicine; PCP Internal Medicine; Visit Provider Internal Medicine
DX: N39.0 Urinary tract infection, site not specified (principal); I48.19 Other persistent atrial fibrillation; I69.354 Hemiplegia and hemiparesis following cerebral infarction affecting left non-dominant side; I42.2 Other hypertrophic cardiomyopathy; I12.9 Hypertensive chronic kidney disease with stage 1 through stage 4 chronic kidney disease, or unspecified chronic kidney disease; N18.31 Chronic kidney disease, stage 3a; F03.90 Unspecified dementia, unspecified severity, without behavioral disturbance, psychotic disturbance, mood disturbance, and anxiety; R25.1 Tremor, unspecified; G47.33 Obstructive sleep apnea (adult) (pediatric); I69.322 Dysarthria following cerebral infarction; I69.312 Visuospatial deficit and spatial neglect following cerebral infarction; I69.311 Memory deficit following cerebral infarction; K21.9 Gastro-esophageal reflux disease without esophagitis; Z66 Do not resuscitate
CPT/HCPCS: 36415; 70450; 70496; 70498; 70551; 71045; 80048; 80053; 80061; 80307; 81001; 82306; 82607; 82746; 82948; 83036; 83735; 84145; 84436; 84443; 84480; 84484; 85025; 85610; 85730; 87040; 87077; 87086; 87088; 87186; 93005; 96361; 96365; 96375; 97162; 97165; 97530; 99285; A9270; C8929; G0378; J0696; J7120; Q9957; Q9967

== ENCOUNTER 2023-11-17 08:51 | Outpatient (CLI) | payer MEDICARE, SELFPAY ==
[2023-11-17 18:39] LABS: Basophils Absolute Auto 0.1 K/mm3 (0.0-0.1); Eosinophils Absolute Auto 0.1 K/mm3 (0-0.3); Eosinophils Percent Auto 1.8 % (0-4.4); Hematocrit 44.7 % (42.0-52.0); Hemoglobin 14.7 g/dL (14.0-18.0); Immature Granulocyte Absolute 0.02 K/mm3 (0.00-0.031); Immature Granulocyte Percent A 0.3 % (0-0.5); Lymphocytes Absolute Auto 1.07 K/mm3 (0.9-3.2); Mean Corpuscular HGB Conc 32.9 g/dl (32-36); Mean Corpuscular Hemoglobin 29.5 pg (26-34); Mean Corpuscular Volume 89.6 fl (80-100); Mean Platelet Volume 10.8 fl (7.4-10.4); Monocytes Absolute Auto 0.5 K/mm3 (0.1-0.6); Monocytes Percent Auto 7.6 % (2.6-8.5); Neutrophils Absolute Auto 5.3 K/mm3 (1.3-6.7); Neutrophils Percent Auto 74.3 % (45.5-73.1); Platelet Count Result 193 k/mm3 (150-375); Red Blood Count 4.99 M/mm3 (4.6-6.20); Red Cell Distribution Width 14.8 % (11.5-14.5); White Blood Count 7.1 K/mm3 (4.5-10.0)
[2023-11-17 18:50] LABS: Alanine Aminotransferase 18 U/L (6-50); Albumin Level 3.7 g/dL (3.5-5.1); Alkaline Phosphatase 80 U/L (38-126); Anion Gap 10 mmol/L (4-12); Aspartate Amino Transferase 33 U/L (17-59); Bilirubin,Total 0.6 mg/dL (0.2-1.3); Blood Urea Nitrogen 21 mg/dL (9-20); Calcium 8.8 mg/dL (8.4-10.2); Carbon Dioxide 27 mmol/L (22-30); Chloride 103 mmol/L (98-107); Estimated Glomerular Filt Rate 53; Glucose 94 mg/dL (65-110); Potassium 3.5 mmol/L (3.4-5.0); Sodium 140 mmol/L (137-145)
[2023-11-17 19:47] LABS: Appearance Urine Clear (Clear); Bacteria Urine None Seen /hpf; Bilirubin Urine Negative (Negative); Blood Urine Negative (Negative); Color Urine Yellow (Yellow); Glucose Urine UA Negative (Negative); Ketones Urine Negative (Negative); Leukocyte Esterase Ur Trace LEU/UL (Negative); Nitrate Urine Negative (Negative); Non Pathogenic Casts 0-2; Protein Urine Trace mg/dL (Negative); RBC Urine 0-2 /hpf (0-2); Squamous Epithelial Cell Urine None Seen /hpf (Few); Urobilinogen Urine 0.2 mg/dL (<2.0); WBC Urine 0-5 /hpf (0-3); pH Urine 6.5 (5.0-9.0)
[2023-11-17 19:57] LABS: Add Urine Microscopic? YES
== END 2023-11-17 08:52 | disposition home or self-care (01) ==
LOC: ANHGOSHLAB 08:52
PROVIDERS: PCP Internal Medicine; Visit Provider Nurse Practitioner
DX: N18.9 Chronic kidney disease, unspecified (principal); N39.0 Urinary tract infection, site not specified; D64.9 Anemia, unspecified
CPT/HCPCS: 36415; 80053; 81001; 85025

== ENCOUNTER 2023-11-27 14:25 | Outpatient (CLI) | payer MEDICARE, SELFPAY ==
--- NOTE | ~2023-11-27 | CT_ITS ---
EXAMINATION: CTA brain carotid DATE: 11/27/2023 15:18 INDICATION: Stroke. TECHNIQUE: Computed tomographic angiography (CTA) of the head was performed without and with 100 mL O mnipaque-350 intravenous contrast. CTA of the neck was performed with intravenous contrast. Automated exposure control and iterative reconstruction technique were employed. The dose-length product was 1 590.00 mGy-cm. Maximum intensity projection and volume rendered 3D-reconstructions were created by fausto falcon technologist on a separate workstation. COMPARISON: Head and neck CTA 08/09/2023, brain MRI 08/10/2023 FINDINGS: HEAD CTA: There is an old infarct involving left temporal occipital region in the expected distributi on of left posterior cerebral artery. There is an old infarct in the right frontal lobe deep white ma tter. There is an old infarct in the right basal ganglia. There are scattered areas of low attenuatio n in the cerebral white matter, which is within normal limits for the patient's age. There is a 7 mm hyperdense mass in right frontal lobe. There is no acute ischemic infarct or intracranial hemorrhage. There is ex vacuo dilatation of left lateral ventricle. There are likely changes of ocular lens repl acement surgeries. There is mild mucosal thickening in the paranasal sinuses. There is a small right mastoid effusion. Left vertebral artery is dominant. There is no significant stenosis of basilar scottie ry or the posterior cerebral arteries. There is no significant stenosis of the intracranial internal carotid arteries or anterior or middle cerebral arteries. Anterior communicating artery is normal. Th ere is no aneurysm. The posterior communicating arteries are normal. There is a developmental venous anomaly in right frontal lobe. NECK CTA: There is mild scarring at the lung apices. There are no pathologically enlarged lymph nodes . There is no significant stenosis of the vertebral arteries. There is plaque in the proximal interna l carotid arteries. There is 37% stenosis of the proximal right internal carotid artery relative to n ormal distal artery lumen diameter (NASCET criteria). There is 0% stenosis of the proximal left inter nal carotid artery relative to normal distal artery lumen diameter. There is severe cervical spondylo sis. IMPRESSION: 1. Old infarcts involving the left temporal occipital region, right basal ganglia, and right frontal lobe. 2. 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 3. No aneurysm or significant intracranial arterial stenosis. 4. 37% stenosis of the proximal right internal carotid artery relative to normal distal artery lumen diameter (NASCET criteria). 5. 0% stenosis of the proximal left internal carotid artery relative to normal distal artery lumen di ameter. Reviewed, dictated and finalized at location A. IMPRESSION: 1. Old infarcts involving the left temporal occipital region, right basal gangl ia, and right frontal lobe. 2. 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 3. No aneurysm or significant intracranial arterial stenosis. 4. 37% stenosis of the proximal right internal carotid artery relative to shelia l distal artery lumen diameter (NASCET criteria). 5. 0% stenosis of the proximal left internal carotid artery relative to normal distal artery lumen diameter.
== END 2023-11-27 14:26 | disposition home or self-care (01) ==
PROVIDERS: PCP Internal Medicine; Visit Provider Student in an Organized Health Care Education/Training Program
DX: I69.30 Unspecified sequelae of cerebral infarction (principal); I65.21 Occlusion and stenosis of right carotid artery
CPT/HCPCS: 70496; 70498; Q9967

== ENCOUNTER 2024-02-10 08:26 | Outpatient (CLI) | payer MEDICARE, SELFPAY ==
[2024-02-10 09:49] LABS: Cholesterol 145 mg/dL (0-200); HDL Direct 81 mg/dL; Triglycerides 110 mg/dL (<150)
[2024-02-10 10:00] LABS: LDL Cholesterol Direct 40 mg/dL
[2024-02-10 10:38] LABS: Vitamin B12 > 1000.0 pg/mL (239-931)
[2024-02-11 10:44] LABS: Homocysteine 15.6 umol/L (<11.4)
[2024-02-11 17:58] LABS: Red Blood Cell Folate 511 ng/mL RBC (>280)
[2024-02-14 08:22] LABS: Vitamin D 1,25 (OH)2 Total 40 pg/mL (18-72); Vitamin D2 1,25 (OH)2 <8 pg/mL; Vitamin D3 1,25 (OH)2 40 pg/mL
[2024-02-15 07:23] LABS: Methylmalonic Acid 138 nmol/L (85-423)
== END 2024-02-10 08:27 | disposition home or self-care (01) ==
LOC: ANHLAB 08:27
PROVIDERS: PCP Internal Medicine; Visit Provider Psychiatry & Neurology Neurology
DX: F02.80 Dementia in other diseases classified elsewhere, unspecified severity, without behavioral disturbance, psychotic disturbance, mood disturbance, and anxiety (principal); G30.9 Alzheimer's disease, unspecified; I48.91 Unspecified atrial fibrillation; E55.9 Vitamin D deficiency, unspecified; E78.2 Mixed hyperlipidemia
CPT/HCPCS: 36415; 80061; 82607; 82652; 82747; 83090; 83921

== ENCOUNTER 2024-06-21 11:31 | Outpatient (CLI) | payer MEDICARE, SELFPAY ==
[2024-06-21 13:30] LABS: Basophils Absolute Auto 0.1 K/mm3 (0.0-0.1); Basophils Percent Auto 0.9 % (0.2-1.2); Eosinophils Absolute Auto 0.1 K/mm3 (0-0.3); Eosinophils Percent Auto 0.9 % (0-4.4); Hematocrit 47.2 % (42.0-52.0); Hemoglobin 14.8 g/dL (14.0-18.0); Immature Granulocyte Absolute 0.03 K/mm3 (0.00-0.031); Immature Granulocyte Percent A 0.4 % (0-0.5); Lymphocytes Absolute Auto 1.32 K/mm3 (0.9-3.2); Mean Corpuscular HGB Conc 31.4 g/dl (32-36); Mean Corpuscular Hemoglobin 29.7 pg (26-34); Mean Corpuscular Volume 94.6 fl (80-100); Mean Platelet Volume 10.7 fl (7.4-10.4); Monocytes Absolute Auto 0.8 K/mm3 (0.1-0.6); Monocytes Percent Auto 9.7 % (2.6-8.5); Neutrophils Absolute Auto 5.9 K/mm3 (1.3-6.7); Neutrophils Percent Auto 72.1 % (45.5-73.1); Platelet Count Result 181 k/mm3 (150-375); Red Blood Count 4.99 M/mm3 (4.6-6.20); Red Cell Distribution Width 14.8 % (11.5-14.5); White Blood Count 8.2 K/mm3 (4.5-10.0)
[2024-06-21 21:57] LABS: Alanine Aminotransferase 23 U/L (6-50); Alkaline Phosphatase 79 U/L (38-126); Anion Gap 8 mmol/L (4-12); Aspartate Amino Transferase 29 U/L (17-59); Bilirubin,Total 0.7 mg/dL (0.2-1.3); Blood Urea Nitrogen 20 mg/dL (9-20); Calcium 9.2 mg/dL (8.4-10.2); Carbon Dioxide 26 mmol/L (22-30); Chloride 105 mmol/L (98-107); Estimated Glomerular Filt Rate 55; Glucose 90 mg/dL (65-110); Potassium 3.7 mmol/L (3.4-5.0); Sodium 139 mmol/L (137-145)
[2024-06-21 23:19] LABS: Folic Acid > 20.0 ng/mL (2.76->20)
== END 2024-06-21 11:32 | disposition home or self-care (01) ==
LOC: ANHGOSHLAB 11:32
PROVIDERS: PCP Internal Medicine; Visit Provider Internal Medicine
DX: I12.9 Hypertensive chronic kidney disease with stage 1 through stage 4 chronic kidney disease, or unspecified chronic kidney disease (principal); I48.19 Other persistent atrial fibrillation; N18.31 Chronic kidney disease, stage 3a; D64.9 Anemia, unspecified
CPT/HCPCS: 36415; 80053; 82607; 82746; 85025

== ENCOUNTER 2024-08-13 07:27 | Outpatient (CLI) | payer MEDICARE, SELFPAY ==
--- NOTE | ~2024-08-13 | MR_ITS ---
EXAMINATION: MR brain/brain stem wo con DATE: 08/13/2024 08:23 INDICATION: Personal history of other healed physical injury. Stroke. TECHNIQUE: Magnetic resonance imaging (MRI) of the brain and brainstem was performed without intraven ous contrast. Sequences included sagittal and axial T1-weighted SE, axial diffusion-weighted FS SE, a xial 3D SWAN, axial T2-weighted FLAIR, and axial T2-weighted FSE. Apparent diffusion coefficient (AD C) maps were created. COMPARISON: Head CT and CT angiogram dated 11/27/2023 FINDINGS: Again seen is a region of chronic encephalomalacia in the left temporal occipital region consistent w ith old infarct. Additional small old lacunar infarct in the right frontal lobe and right basal gangl ia. 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 There are no areas of restricted diffusion to suggest acute infarction. There are scattered areas of nonspecific increased T2-weighted signal intensity in the ce rebral white matter, predominantly involving the deep and periventricular white matter. There are no intraparenchymal signal abnormalities seen on the other pulse sequences. The ventricles are symmetric and normal in size with mild ex vacuo dilation of the occipital horn of the left lateral ventricle.. There are no abnormal extra-axial fluid collections. Flow voids are seen in the cerebral arteries on the T2-weighted sequences consistent with their expected patency. Mild mucosal thickening in the che ateral ethmoid sinuses. Changes of bilateral intraocular lens replacement. Visualized orbits and sof t tissues are unremarkable. IMPRESSION: 1. Old infarct in the left temporal occipital region, right basal ganglia and right frontal lobe. No acute intracranial process. 2. 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 3. Moderate scattered white matter T2 hyperintensity consistent with sequela of chronic small vessel ischemic disease. Reviewed, dictated and finalized at location A. IMPRESSION: 1. Old infarct in the left temporal occipital region, right basal ganglia and r ight frontal lobe. No acute intracranial process. 2. 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 3. Moderate scattered white matter T2 hyperintensity consistent with sequela of chronic small vessel ischemic disease.
--- OUTSIDE RECORDS SUMMARY | 2024-08-13 07:31 | XMS_ITS | Clinical Summary ---
Author Organization [facility] Address [address] [place] [id number] Care Team Providers Care Test Carrier Name Role Phone Unavailable Primary Care Provider Unavailabl e Social History Tobacco Use Types Packs/Day Years Used Date Smoking Tobacco: Never Assessed Sex and Gender Information Value Date Recorded Sex Assigned at Not on file Legal Sex Male 3:15 PM CDT Gender Identity Not on file Sexual Orientation Not on file Plan of Treatment Health Maintenance Due Date Last Done Comments Hepatitis C Virus (HCV) Screening 1945 Respiratory Syncytial Virus (RSV) Immunization (Adult) (1 - 1-dose 75+ series) 2018 Pneumococcal Immunization (50+ years) (2 of 2 - PPSV23) 03/12/2019 03/12/2018 Influenza Immunization (#1) 12/20/202310/2019, 02/06/2017, 01/29/2016, Additional history exists SARS-COV-2 Immunization ( - season) 2023 DTaP/Tdap/Td Immunization Discontinued 01/30/2015 TdaP Immunization Completed 01/30/2015 Pneumococcal Immunization Combined Discontinued 03/12/2018 Zoster Immunization Completed 10/13/2018, 9 Hepatitis B Immunization Aged Out No longer eligible based on patient's age to complete this topic Meningococcal Immunization (ACWY) Aged Out No longer eligible based on patient's age to complete this topic Rotavirus Immunization Aged Out No lo nger eligible based on patient's age to complete this topic
--- OUTSIDE RECORDS SUMMARY | 2024-08-13 07:31 | XMS_ITS | Encounter Summary ---
Author Organization [facility] Address [address] [facility] [address] Care Team Providers Care Supervisor Pumping Name Role Phone Aronfarida Salvador Mary Anne DELGADO Primary Care Provider [phone] Encounter Details Date Type Department Care Team (Late st Contact Info) Description 11/22/[address] 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 Received: 11/22/2020 06:09 AM Pathologist: Rylie Quinonez MD Specimen: Skin, mid back 08/06/202 1 11:51 AM CDT DERMATOPATHOLOGY LABORATORY Final Diagnosis Specimen A. SKIN, mid back: EPIDERMOID CYST WITH EVIDENCE OF RUPTURE (L72.0) PRESENT AT MARGIN (see microscopic description) 11:51 AM T DERMATOPATHOLOGY LABORATORY Clinical History Cyst. Check margins. Path # [id number]. 11:51 AM CDT DERMATOPATHOLOGY LABORATORY Gross Description Specimen A: Received is one formalin filled container labeled with the patient's name and designated mid back. The specimen consists of a [id number] excision, bisected. The margin is inked green. Jar 0. 11:51 AM CDT DERMATOPATHOLOGY LABORATORY Microscopic Description Specimen A. SKIN, mid back: Within the dermis, there is a space lined by epithelium that resembles normal epidermis and the infundibular portion of the hair follicle. Surrounding this is an infiltrate with histiocytes, Lymphocytes, and multinucleated giant cells. This lesion is present at the margin of the specimen. 11:51 AM CDT DERMATOPATHOLOGY LABORATORY Disclaimer An external and internal positive and negative controls are appropriate for the histochemical, immunohistochemical and immunofluorescence stain(s) in this case (if any), except where stated explicitly. The performance characteristics of the stain(s) cited in this report were developed and its performance characteristic determined by the Dermatopathology Laboratory at [facility], directed by Dr. Rika Reddy. These tests need not be, and therefore are not, approved by the [place] Food and Drug Administration. The tests are used for clinical purposes. Billing Codes Specimen Charges Stain Charges 38930 1 11:51 AM CDT DERMATOPATHOLOGY LABORATORY Embedded Images 11:51 AM CDT DERMATOPATHOLOGY LABORATORY Pathology/Cytolo gy TISSUE SPECIMEN FROM SKIN / Unknown 11/21/2020 3:33 AM CDT 11/22/2020 6:09 AM CDT us Bryan Malone MD LAB - PATHOLOGY/CYTOLOGY ORDER IRMA Final Result DERMATOPATHOLOGY LABORATORY [facility] - Department of Dermatology [facility] [address] [facility], [address] Floor [address] [phone] documented in this encounter Visit Diagnoses Not on filedocumented in this encounter Care Teams Supervisor Pumping Relationship Specialty Start Date End Date Salvador Marcano DO PCP - General 07/25/15 documented as of this encounter
--- OUTSIDE RECORDS SUMMARY | 2024-08-13 07:31 | XMS_ITS | Clinical Summary ---
Author Organization [facility] [address] Address [address] [place] [address] Care Team Providers Care Clam Bed Laborer Name Role Phone Salvador Marcano DO Primary Care Provider [phone] Allergies Active Allergy Reactions Criticality Noted Date Comments Penicillins Rash Medium Medications fexofenadine (KRISTEN) 180 mg tablet take 1 tablet by oral route every day 0 0 12/12/19 15 Active Additional Information Patient not taking.Reported on 10/13/2023 tamsulosin (FLOMAX) 0.4 mg extended release capsule 05/07/19 20 Active omeprazole (PriLOSEC) 40 mg capsule 05/07/19 20 Active finasteride (PROSCAR) 5 mg tablet Take 1 tablet (5 mg total) by mouth daily Active potassium 99 mg tablet Take 1 tablet (99 mg total) by mouth daily Active cholecalcifero l (VITAMIN D-3) 2000 unit capsule Take 1 capsule (2,000 Units total) by mouth daily Active carvediloL (COREG) 6.25 mg tablet Take 1 tablet (6.25 mg total) by mouth 2 (two) times a day with meals 60 tablet 09/28/19 Active atorvastatin (LIPITOR) 40 mg tablet Take 1 tablet (40 mg total) by mouth nightly at bedtime. 10/04/19 22 Active solifenacin (VESIcare) 10 mg tablet Take 1 tablet (10 mg total) by mouth daily Active donepeziL (ARICEPT) 10 mg tablet Take 1 tablet (10 mg total) by mouth nightly 07/14/19 24 Active apixaban (Eliquis) 5 mg tablet Take 1 tablet (5 mg total) by mouth 2 (two) times a day 180 tablet 2 02/10/20 24 Active NIFEdipine (NIFEdipine CC) 90 mg 24 hr tablet Take 1 tablet (90 mg total) by mouth daily 90 tablet 3 08/09/19 25 Active NIFEdipine CC 90 mg 24 hr tablet TAKE 1 TABLET(90 MG) BY MOUTH DAILY 90 tablet 1 05/02/19 25 025 Discontinued Active Problems Problem Noted Date Diagnosed Date Status post placement of implantable loop record er 02/10/2022 Overview (02/10/2022): Medtronic LINQ11 Loop Recorder. Dx; Cryptogenic stroke. DOI 10/01/2021-elsewhere. [facility] remote monitoring. Cardiomyopathy, hypertrophic 11/04/2016 Encounters Date Type Department Care Team Description 07/25/2024 9:15 AM CDT Ancillary Procedure 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 Cardiology [address] [place] [phone] Status post placement of implantable loop recorder; Cryptogenic stroke (HCC) from Last 3 Months Surgical History Surgery Date Site/Laterality Comments CATARACT EXTRACTION 12/16/1917 HERNIA REPAIR 12/27/2007 ABDOMINAL SURGERY 04/20/1999 LASIK 09/23/2017 Medical History Medical History Date Comments Hypertension Hypertension GERD (gastroesophageal reflux disease) 0 Benign prostatic hyperplasia 04/20/1979 Cataract 08/11/2017 Kidney stone 04/20/2009 Sleep apnea 11/11/2016 Family History Medical History Relation Name Comments Diabetes Brother Dusty Car Obesity Brother Dusty Car Arthritis Mother Amna Car Hypertension Mother Amna Car Hypertension ; Miscarriages / Stillbirths Mother Amna Rodriguez s Relation Name Status Comments Brother Dusty Car Mother Amna Car Alive Social History Tobacco Use Types Packs/Day Years Used Date Smoking Tobacco: Former Cigarettes Q uit: 05/26/1970 Smokeless Tobacco: Never Tobacco Cessation:Counseling Given: Not Answered Alcohol Use Standard Drinks/Week Comments No 0 (1 standard drink = 0.6 oz pur e alcohol) Sex and Gender Information Value Date Recorded Sex Assigned at Not on file Legal Sex Male 1:58 AM HYDROGRAPHY TEACHER Gender Identity Male 10/08/2019 6:01 PM CDT Sexual Orientation Straight 10/08/2019 6: 01 PM CDT Obstetrics History Last Filed Vital Signs Vital Sign Reading Time Taken Comments Blood Pressure 140/78 10/13/2023 1:19 PM CDT Pulse 76 10/13/2023 1:19 PM CDT Temperature - - Respiratory Rate 12 11/04/2016 2:54 PM CDT Oxygen Saturation 98% 10/13/2023 1:19 PM CDT Inhaled Oxygen Concentration - - Weight 73.8 kg (162 lb 11.2 oz) 10/13/2023 1:19 PM CDT Height 167.6 cm (5' 6 ) 10/13/2023 1:19 PM CDT Body Mass Index 26.26 10/13/2023 1:19 PM CDT Plan of Treatment Health Maintenance Due Date Last Done Comments Depression Screening 1945 Fall Risk Assessment 1945 Hepatitis B Screening 1961 Abdominal Aortic Aneurysm (A AA) Screen 2008 Well Visit 65+ 2008 Pneumococcal vaccine 65+ (2 of 2 - PPSV23) 03/12/2019 03/12/2018 Influenza Vaccine (Season Ended) 2024 02/06/2017, 01/29/2016, 01/23/2015, Additional history exists DTaP/Tdap/Td Vaccine (2 - Td or Tdap) 01/30/2025 01/30/2015 Zoster Vaccine Completed 10/13/2018, 07/08/2018 Procedures Procedure Name Priority Date/Time Associated Diagnosis Comments DEVICE CHECK - REMOTE Routine 07/26/2024 11:39 AM CDT Status post placement of implantable loop recorder Cryptogenic stroke (HCC) DEVICE CHECK - REMOTE Routine 06/13/2024 8:50 AM HYDROGRAPHY TEACHER Status post placement of implantable loop recorder Cryptogenic stroke (HCC) from Last 3 Months Results * DEVICE CHECK - REMOTE (07/26/2024 11:39 AM CDT) Anatomical Region Laterality Modality Other Narrative 07/28/2024 8:26 AM CDT Medtronic LINQ11 Loop Recorder. Dx; Cryptogenic stroke. DOI 10/01/2021-elsewhere. [facility] remote monitoring. Routine ILR remote. Normal device function. Battery function-good Presenting rhythm: AFib Medications: Eliquis 5 mg, atorvastatin 40 mg, carvedilol 6.25 mg Counters since last scheduled transmission on 06/13/24. --0 Tachy --0 Pierce --0 Pause --0 Symptom --932 AF - EGMs demonstrate AFib. Longest episode was 12 hours and 52 minutes in duration. AFib burden 42.8% See scanned report. [facility] remote f/u 09/05/24. Vrial Muro RN us Yfn Tesfaye MD [facility] PROC EDURES Final Result * DEVICE CHECK - REMOTE (06/13/2024 8:50 AM HYDROGRAPHY TEACHER) Anatomical Region Laterality Modality Other Narrative 06/24/2024 8:32 AM HYDROGRAPHY TEACHER Medtronic LINQ11 Loop Recorder. Dx; Cryptogenic stroke. DOI 10/01/2021-elsewhere. [facility] remote monitoring. Routine ILR remote. Normal device function. Battery function-good Presenting rhythm: AFib Medications: Eliquis 5 mg, atorvastatin 40 mg, carvedilol 6.25 mg Counters since last scheduled transmission on 05/02/24. --0 Tachy --0 Pierce --0 Pause --0 Symptom --687 AF EGMs demonstrate AFib. AFib burden 43.2% See scanned report. [facility] remote f/u 07/25/24. Viral Muro RN Yfn Tesfaye MD [facility] CARDIAC SERVICES PROC EDURES Final Result from Last 3 Months Insurance [facility] MEDIC[facility] Address: [facility] [address] [place] [address] [facility] MEDIC[facility] Address: [address] [address] [place] [address] Care Teams Clam Bed Laborer Relationship Specialty Start Date End Date Salvador Marcano DO PCP - General 02/16/12
--- OUTSIDE RECORDS SUMMARY | 2024-08-13 07:31 | XMS_ITS | Clinical Summary ---
Author Organization [facility] Address [address] [place] [address] Care Team Providers Care Adjunct Sociology Professor Name Role Phone Salvador Marcano DO Primary Care Provider Source Comments [facility],non-owned Affiliates and Associated Physician Practices is amultiple site organization consisting of ambulatory clinics and hospital sitesin [place], [place], [place] and [place]. This disclosure is being madepursuant to the Care Everywhere program and may not contain all information available regarding this patient. Last updated 18.[facility] Allergies Active Allergy Reactions Criticality Noted Date Comments Penicillins Rash Medium 09/29/2021 Medications * Be aware that medications may not be up to date on this document. Alwaysverify current medications with the patient. Cholecalciferol 50 MCG (1999) Take 2,000 Units by mouth once daily 08/15/2021 Active omeprazole (PRILOSEC) 40 MG capsule 07/24/2021 Active Potassium Gluconate 2.5 MEQ Take 1 tablet by mouth once daily 08/15/2021 Active solifenacin (VESICARE) 10 MG tablet Take 10 mg by mouth once daily 06/24/2021 Active atorvastatin (LIPITOR) 40 MG tablet Take 1 (one) tablet by mouth at bedtime 30 tablet 11 10/03/2021 Active apixaban (Eliquis) 5 MG tablet Take 1 (one) tablet by mouth 2 times daily 60 tablet 5 04/16/2022 Active Active Problems Problem Noted Date Diagnosed Date Occipital stroke 09/30/2021 GERD (gastroesophageal reflux disease) Chronic hypokalemia 09/30/2021 Hyperlipidemia 09/30/2021 BPH (benign prostatic hyperplasia) 09/30/2021 Cavernous malformation 09/30/2021 Urinary retention 09/30/2021 Essential hypertension 09/29/2021 Melanocytic nevi of lower extremity or hip 08/31 Melanocytic nevi of trunk 08/31/2016 Melanocytic nevi of unspecif ied upper limb, including shoulder 08/31/2016 Other melanin hyperpigmentation 08/26/2015 Actinic keratosis 08/24/2015 Other seborrheic keratosis 08/24/2015 Neoplasm of uncertain behavior of skin 6 Resolved Problems Problem Noted Date Diagnosed Date Resolved Date Weakness 09/29/2021 09/30/2021 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 Never 09/29/2021 Q2: How many drinks containi ng alcohol do you have on a typical day when you are drinking? Patient does not drink Q3: How often do you have si x or more drinks on one occasion? Never 09/29/2021 PHQ-2 Answer Date Recorded PHQ2 TOTAL SCORE 0 10/02/2021 Hunger Vital Sign Answer Date Recorded Within the past 12 months, y ou worried that your food would run out before you got the money to buy more. Never true 10/01/19 22 Within the past 12 months, t he food you bought just didn't last and you didn't have money to get more. 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 Gender Identity Not on file Sexual Orientation Not on file Last Filed Vital Signs Vital Sign Reading Time Taken Comments Blood Pressure 165/99 10/03/2021 11:58 AM CDT Pulse 88 10/03/2021 11:58 AM CDT Temperature 37.1 C (98.8 F) 10/03/2021 11:58 AM CDT Respiratory Rate 18 10/03/2021 11:58 AM CDT Oxygen Saturation 97% 10/03/2021 11:58 AM CDT Inhaled Oxygen Concentration - - Weight 76.8 kg (169 lb 5 oz) 09/29/2021 7:03 PM CDT Height 170.2 cm (5' 7 ) 09/29/2021 7:03 PM CDT Body Mass Index 26.52 09/29/2021 7:03 PM CDT Plan of Treatment Health Maintenance Due Date Last Done Comments DTAP/TDAP/TD VACCINES (1 - Tdap) 1962 PNEUMOCOCCAL VACCINE 50+ (1 of 1 - PCV) 1993 ZOSTER VACCINE (1 of 2) 1993 Respiratory Syncytial Virus (RSV) Vaccine Pt: or over 60 yrs (1 - 1-dose 75+ series) 2018 COVID-19 VACCINE ( - 2023-2 5 season) 2023 DEPRESSION SCREENING 04/20/2024 09/29/2021 MEDICARE AWV CALENDAR YEAR 2024 INFLUENZA VACCINE (Season Ended) 2024 HEPATITIS B VACCINE Aged Out No longe r eligible based on patient's age to complete this topic HIB VACCINE Aged Out No longer eligi ble based on patient's age to complete this topic HPV VACCINE Aged Out No longer eligi ble based on patient's age to complete this topic MENINGOCOCCAL (Group B) VACC INE SHARED DECISION-MAKING Aged Out No longer eligibl e based on patient's age to complete this topic MENINGOCOCCAL GROUPS A/C/Y/W VACCINE Aged Out No longer eligible b ased on patient's age to complete this topic Medical Devices Implanted Type Area Sewage Disposal Engineer Device Identifier Shelf Expiration Date Model / Serial / Lot Sys Crd Mntr Rvl Linq Ii - [id number] Implanted:Qty: 1 on 10/01/2021 by Neal Diez MD at [facility] 05/19/2022 [id number] / [id number] / Description:Implanted by Dr. Sanchez Insurance MANAGED MEDICARE ADV MANAGED MEDICARE ADV Advance Directives * Full Code (Latest Code Status on File) Date Activated Date Inactivated Comments 09/29/2021 1:38 PM 10/03/2021 4:08 PM Care Teams Adjunct Sociology Professor Relationship Specialty Start Date End Date Salvador Marcano DO PCP - General 07/25/15
--- OUTSIDE RECORDS SUMMARY | 2024-08-13 07:31 | XMS_ITS | Referral Summary ---
Author Organization [facility] [address] Address [address] [place] [address] Care Team Providers Care Forestry Engineer Name Role Phone Salvador Marcano DO Primary Care Provider [phone] Encounters Date Type Department Care Team Description 07/25/2024 9:15 AM CDT Ancillary Procedure [facility] Medical [facility] Cardiology [address] [place] [address] [place] [phone] Status post placement of implantable loop recorder; Cryptogenic stroke (HCC) 06/13/2024 10:00 AM CAMERA OPERATOR Ancillary Procedure [facility] Cardiology [address] [place] [address] [place] [phone] Status post placement of implantable loop recorder; Cryptogenic stroke (HCC) from Last 3 Months Allergies Active Allergy Reactions Criticality Noted Date [...] total) by mouth nightly at bedtime. 10/04/19 Active solifenacin (VESIcare) 10 mg tablet Take [...] implantable loop record er 02/10/2022 Overview (02/10/2022): [employer] LINQ11 Loop Recorder. Dx; Cryptogenic stroke. DOI 10/01/2021-elsewhere. Carelink remote monitoring. Cardiomyopathy, hypertrophic 11/04/2016 Social History Tobacco Use Types Packs/Day Years Used Date Smoking Tobacco: Former Cigarettes Q uit: 05/26/1970 Smokeless Tobacco: Never Tobacco Cessation:Counseling Given: Not Answered Alcohol Use Standard Drinks/Week Comments No 0 (1 standard drink = 0.6 oz pur e alcohol) Sex and Gender Information Value Date Recorded Sex Assigned at Not on file Legal Sex Male 1:58 AM CAMERA OPERATOR Gender Identity Male 10/08/2019 6:01 PM CDT Sexual Orientation Straight 10/08/2019 6: 01 PM CDT Last Filed Vital Signs Vital Sign Reading [...] 10/13/2023 1:19 PM CDT Plan of Treatment Not on file Procedures Procedure Name Priority Date/Time Associated Diagnosis Comments DEVICE CHECK - REMOTE Routine 07/26/2024 11:39 AM CDT Status post placement of implantable loop recorder Cryptogenic stroke (HCC) DEVICE CHECK - REMOTE Routine 06/13/2024 8:50 AM CAMERA OPERATOR Status post placement of implantable loop recorder [...] See scanned report. [facility] remote f/u 09/05/24. Viral Muro, BREANNA us Yfn Tesfaye MD [facility] PROC EDURES Final Result * DEVICE CHECK - REMOTE (06/13/2024 8:50 AM CAMERA OPERATOR) Anatomical Region Laterality Modality Other Narrative 06/24/2024 8:32 AM CAMERA OPERATOR [employer] LINQ11 Loop Recorder. Dx; Cryptogenic stroke. [...] Final Result from Last 3 Months Insurance MEDICARE ADVANTAGE MEDICARE ADVANTAGE Care Teams Forestry Engineer Relationship Specialty Start Date End Date Salvador Marcano DO [facility] - General 02/16/12
--- OUTSIDE RECORDS SUMMARY | 2024-08-13 07:31 | XMS_ITS | Continuity of Care Document ---
Author Organization [facility] Address [address] [place] [address] Phone Care Team Providers Care Cattle Trader Name Role Phone Marcin Harris Unavailable Unavailable Procedures Procedure Date Office/outpatient Visit, Est No Script Office Consultation Ophthalmoscopy Ophthalmoscopy Office/outpatient Visit, Est No Script Advance Directives Directive Yes / No Effective Date File Name No Information Encounters Encounter Description Practice Location Reason(s) For Visit Diagnoses Date Provider Providers Copied on Encounter Office/outpati ent Visit, Est [facility], [id number] [place] [address] [address], [place], [place], [id number], tel:[phone] [facility] No Information [address]urch. [address] [place] [address], [facility], [place]. tel:[phone] Office Consultation [facility], [address] [place] [address] [address], [place], [place], [id number], [place] tel:[phone] [facility] No Information 0 9-200 9 Randall Elizabeth. [address] [place], [place], [facility], [place]. tel:[phone] Referring Provider: Marcin yeager [address] [address], [place], [address]. tel:[phone] Office/outpati ent Visit, [facility], [address], [place], [place], [id number], [place] tel:[phone] [facility] No Information 6-200 9 Steven Burch. [address], [place], [address], [place]. tel:[phone] Family History Family Member Type Diagnosis Age At Onset No Information Payers Payer name Insurance type Covered constitution party ID Authoriza tion(s) [place] [id number] [facility] [id number] Social History Type Description Quantity Date Captured [...]
== END 2024-08-13 07:28 | disposition home or self-care (01) ==
PROVIDERS: PCP Internal Medicine; Visit Provider Psychiatry & Neurology Neurology
DX: Z87.828 Personal history of other (healed) physical injury and trauma (principal); R93.0 Abnormal findings on diagnostic imaging of skull and head, not elsewhere classified
CPT/HCPCS: 70551

== ENCOUNTER 2024-12-26 11:37 | Outpatient (CLI) | payer MEDICARE, SELFPAY ==
--- OUTSIDE RECORDS SUMMARY | 2008-06-27 05:30 | XMS_ITS | Continuity of Care Document ---
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 Name Role Phone Marcin Harris Unavailable Unavailable Procedures Procedure Date Office/outpatient Visit, Est No Script Office Consultation Ophthalmoscopy Ophthalmoscopy Office/outpatient Visit, Est No Script Advance Directives Directive Yes / No Effective Date File Name No Information Encounters Encounter Description Practice Location Reason(s) For Visit Diagnoses Date Provider Providers Copied on Encounter Office/outpati ent Visit, Est [facility], [id number] [place] [address] [address], [place], [place], [id number], tel:[phone] SEC [facility] No Information 0200 9 Steven Burch. [address] [place] [address], [facility], [place]. tel:[phone] Office Consultation [facility], [address] [place] [address] [address], [place], [place], [id number], [place] tel:[phone] SEC [facility] No Information 0 9-200 9 Randall Elizabeth. [address] [place], [place], [facility], [place]. tel:[phone] Referring Provider: Marcin yeager [address] [address], [place], [address]. tel:[phone] Office/outpati ent Visit, [facility], [address], [place], [place], [id number], [place] tel:[phone] SEC [facility] No Information 6-200 [address]. [address] [facility] [address], [place], [address], [place]. tel:[phone] Family History Family Member Type Diagnosis Age At Onset No Information Payers Payer name Insurance type Covered constitution party ID Authoriza tion(s) [place] [id number] [facility] [id number] Social History Type Description Quantity Date Captured Comments Sex Male Smoking Status No Information Chief Complaint And Reason For Visit No Information Reason For Referral Reason For Referral No Information History Of Present Illness Encounter Date Complaint History Of Prese nt Illness No Information Functional Status Date Functional Assessmen t No Information Instructions Date Instruction Additional Infor mation No Information Assessments Type Assessment Date No Information Patient Care Teams Name Effective Dates (start - stop) Status Members No Information
--- OUTSIDE RECORDS SUMMARY | 2024-12-26 11:56 | XMS_ITS | Clinical Summary ---
Author Organization [facility] Address [address] [place] [address] Care Team Providers Care Filament Maker Name Role Phone Salvador Marcano DO Primary Care Provider [phone] Source Comments [facility] [employer] [facility],non-owned Affiliates and Associated Physician Practices is amultiple site organization consisting of ambulatory clinics and hospital sitesin [place], [place], [place] and [place]. This disclosure is being madepursuant to the Care Everywhere program and may not contain all information available regarding this patient. Last updated 18.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 Gender Identity Not on file Sexual Orientation [...] 7:03 PM CDT Height 170.2 cm (5' 7) 09/29/2021 7:03 PM CDT Body Mass Index 26.52 09/29/2021 7:03 PM CDT Plan of Treatment Health Maintenance Due Date Last Done Comments DTAP/TDAP/TD VACCINES (1 - Tdap) 1962 PNEUMOCOCCAL VACCINE 50+ (1 of 1 - PCV) 1993 ZOSTER VACCINE (1 of 2) 1993 Respiratory Syncytial Virus (RSV) Vaccine Pt: or over 60 yrs (1 - 1-dose 75+ series) 2018 DEPRESSION SCREENING 04/20/2024 09/29/2021 MEDICARE AWV CALENDAR YEAR 2024 COVID-19 VACCINE ( - 2023-2 5 season) 2024 INFLUENZA VACCINE (#1) 2024 HEPATITIS B VACCINE Aged Out No [...] this topic Medical Devices Implanted Type Area Marine Firefighter Device Identifier Shelf Expiration Date Model / Serial / Lot Sys Crd Mntr Rvl Linq Ii - [id number] Implanted:Qty: 1 on 10/01/2021 by Neal Diez MD at [facility] 05/19/2022 [id number] / [id number] / Description:Implanted by Dr. Sanchez Insurance MANAGED MEDICARE ADV MANAGED MEDICARE ADV Advance Directives * Full Code (Latest Code Status on File) Date Activated Date Inactivated Comments 09/29/2021 1:38 PM 10/03/2021 4:08 PM Care Teams Filament Maker Relationship Specialty Start Date End Date Salvador Marcano DO PCP - General 07/25/15
--- OUTSIDE RECORDS SUMMARY | 2024-12-26 11:56 | XMS_ITS | Clinical Summary ---
Author Organization [facility] Address [address] [place] [address] Care Team Providers Care Medical Housekeeper Name Role Phone Unavailable Primary Care Provider [...] Immunization (50+ years) (2 of 2 - PCV20 or PCV21) 03/12/2019 03/12/2018 SARS-COV-2 Immunization ( season) 2023 Influenza Immunization (#1) 12/19/202410/2019, 02/06/2017, 01/29/2016, Additional history exists DTaP/Tdap/Td Immunization Discontinued 01/30/2015 TdaP Immunization Completed 01/30/2015 Pneumococcal Immunization Combined Discontinued 03/12/2018 Zoster Immunization Completed 10/13/2018, 9 Hepatitis B Immunization Aged Out No longer eligible based on patient's age to complete this topic Human Papillomavirus (HPV) Immunization Aged Out No longer eligible based on patient's age to complete this topic Meningococcal Immunization (ACWY) Aged Out No longer eligible based on patient's age to complete this topic Rotavirus Immunization Aged Out No lo nger eligible based on patient's age to complete this topic
--- OUTSIDE RECORDS SUMMARY | 2024-12-26 11:56 | XMS_ITS | Encounter Summary ---
Author Organization [facility] Address [address] [place] [address] Care Team Providers Care Brick Extruder Operator Name Role Phone Aronfarida Salvador Mary Anne DELGADO Primary Care Provider [phone] Encounter Details Date Type Department Care Team (Late st Contact Info) Description 11/22/2020 Lab Requisition [facility] [address] [place] [id number] Bryan Malone MD [address] [place] [address] Social History Tobacco Use Types Packs/Day Years Used Date Smoking Tobacco: Never Alcohol Use Standard Drinks/Week Comments Not Asked 0 (1 standard drink = 0.6 oz pur e alcohol) Sex and Gender Information Value Date Recorded Sex Assigned at Not on file Legal Sex Male 5:38 PM POLE INCISOR OPERATOR Gender Identity Not on file Sexual Orientation Not on file documented as of this encounter Plan of Treatment Not on file documented as of this encounter Procedures Procedure Name Priority Date/Time Associated Diagnosis Comments DERMATOPATHOLOGY Routine 11/21/2020 3:33 AM CDT documented in this encounter Results * DERMATOPATHOLOGY (11/21/2020 3:33 AM CDT) Case Report Dermatopathology Report Case: [id number] Authorizing Provider: Bryan Malone MD Collected: 11/21/2020 03:33 AM Ordering Location: [facility] Received: 11/22/2020 06:09 AM Pathologist: Rylie Quinonez MD Specimen: Skin, mid back 11:51 AM CDT DERMATOPATHOLOGY LABORATORY Final Diagnosis Specimen A. SKIN, mid back: EPIDERMOID CYST WITH EVIDENCE OF RUPTURE (L72.0) PRESENT AT MARGIN (see microscopic description) 11:51 AM CDT DERMATOPATHOLOGY LABORATORY at 1151 CDT Clinical History Cyst. Check margins. Path # [id number]. 11:51 AM CDT DERMATOPATHOLOGY LABORATORY Gross Description Specimen A: Received is one formalin filled container labeled with the patient's name and designated mid back. The specimen consists of a [id number] excision, bisected. The margin is inked green. [...] characteristic determined by the Dermatopathology Laboratory at [facility], directed by Dr. Rika Reddy. These tests need not be, and therefore are not, approved by the [place] Food and Drug Administration. The tests are used for clinical purposes. Billing Codes Specimen Charges Stain Charges 69822 1 11:51 AM CDT DERMATOPATHOLOGY LABORATORY Embedded Images 11:51 AM CDT DERMATOPATHOLOGY LABORATORY Pathology/Cytolo gy TISSUE SPECIMEN FROM SKIN / Unknown 11/21/2020 3:33 AM CDT 11/22/2020 6:09 AM CDT us Bryan Malone MD LAB - PATHOLOGY/CYTOLOGY ORDER IRMA Final Result DERMATOPATHOLOGY LABORATORY [facility] - Department of Dermatology [facility] [address] [place] [address], [address] [phone] documented in this encounter Visit Diagnoses Not on filedocumented in this encounter Care Teams Brick Extruder Operator Relationship Specialty Start Date End Date Salvador Marcano DO PCP - General 07/25/15 documented as of this encounter
--- OUTSIDE RECORDS SUMMARY | 2024-12-26 11:56 | XMS_ITS | Clinical Summary ---
Author Organization [facility] [place] [address] Address [address] [place] [address] Care Team Providers Care Millinery Blocker Name Role Phone Salvador Marcano DO Primary Care Provider [phone] Allergies Active Allergy Reactions Criticality Noted Date Comments Adhesive Tape-Silicones Rash Medium 10/17/2024 Amoxicillin Rash Medium 10/17/2024 Penicillins Rash Medium Medications fexofenadine (KRISTEN) 180 mg tablet take 1 tablet by oral route every day 0 0 5 Active tamsulosin (FLOMAX) 0.4 mg extended release capsule 0 Active omeprazole (PriLOSEC) 40 mg capsule 0 Active finasteride (PROSCAR) 5 mg tablet Take 1 tablet (5 mg total) by mouth daily Active potassium 99 mg tablet Take 1 tablet (99 mg total) by mouth daily Active cholecalciferol (VITAMIN D-3) 2000 unit capsule Take 1 capsule (2,000 Units total) by mouth daily Active carvediloL (COREG) 6.25 mg tablet Take 1 tablet (6.25 mg total) by mouth 2 (two) times a day with meals 60 tablet 0 Active Additional Information Patient not taking.Reported on 10/17/2024 atorvastatin (LIPITOR) 40 mg tablet Take 1 tablet (40 mg total) by mouth nightly at bedtime. 2 Active solifenacin (VESIcare) 10 mg tablet Take 1 tablet (10 mg total) by mouth daily Active donepeziL (ARICEPT) 10 mg tablet Take 1 tablet (10 mg total) by mouth nightly 4 Active NIFEdipine (NIFEdipine CC) 90 mg 24 hr tablet Take 1 tablet (90 mg total) by mouth daily 90 tablet 3 5 Active cyanocobalamin (Vitamin B-12) 500 mcg tabletIndicatio ns:Prevention of Vitamin B12 Deficiency Take 1 tablet (500 mcg total) by mouth daily Active mzrqtyld00-oecj -Lmfolate-algal 27 mg iron-1.13 mg-581.92 mg capsule Take by mouth Active memantine (NAMENDA) 10 mg tablet Take 1 tablet (10 mg total) by mouth 2 (two) times a day Active apixaban (Eliquis) 5 mg tablet TAKE 1 TABLET BY MOUTH TWICE DAILY 180 tablet 3 5 Active Active Problems Problem Noted Date Diagnosed Date Status post placement of implantable loop record er 02/10/2022 Overview (02/10/2022): [employer] LINQ11 Loop Recorder. Dx; Cryptogenic stroke. DOI 10/01/2021-elsewhere. [facility] remote monitoring. Cardiomyopathy, hypertrophic 11/04/2016 Encounters Date Type Department Care Team Description 11/29/2024 Orders Only [facility] [address] [place] [phone] Yfn Tesfaye MD Cryptogenic stroke (HCC) (Primary Dx); Status post placement of implantable loop recorder 11/28/2024 9:15 AM CDT Ancillary Procedure [facility] [address] [place] [phone] Status post placement of implantable loop recorder; Cryptogenic stroke (HCC) 10/17/2024 1:15 PM CDT Office Visit [facility] [address] [address] [place] [phone] Yfn Tesfaye MD Status post placement of implantable loop recorder (Primary Dx); Cardiomyopathy, hypertrophic (HCC) 10/17/2024 9:45 AM CDT Ancillary Procedure [facility] [address] [place] [phone] Status post placement of implantable loop recorder; [...] Hypertension ; Miscarriages / Stillbirths Mother Amna haddad Relation Name Status Comments Brother Dusty aCr Mother Amna Car Alive Social History Tobacco Use Types Packs/Day Years Used Date Smoking Tobacco: Former Cigarettes Q uit: 05/26/1970 Smokeless Tobacco: Never Tobacco Cessation:Counseling Given: Not Answered Alcohol Use Standard Drinks/Week Comments No 0 (1 standard drink = 0.6 oz pur e alcohol) Sex and Gender Information Value Date Recorded Sex Assigned at Not on file 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 Gender Identity Male 10/08/2019 6:01 PM CDT Sexual Orientation Straight 10/08/2019 6: 01 PM CDT Obstetrics History Last Filed Vital Signs Vital Sign Reading Time Taken Comments Blood Pressure 132/66 10/17/2024 1:05 PM CDT Pulse 67 10/17/2024 1:05 PM CDT Temperature - - Respiratory Rate 12 11/04/2016 2:54 PM CDT Oxygen Saturation 97% 10/17/2024 1:05 PM CDT Inhaled Oxygen Concentration - - Weight 75.9 kg (167 lb 6.4 oz) 10/17/2024 1:05 P M CDT Height 167.6 cm (5' 6) 10/17/2024 1:05 PM CDT Body Mass Index 27.02 10/17/2024 1:05 PM CDT Plan of Treatment Health Maintenance Due Date Last Done Comments Depression Screening 1945 Fall Risk Assessment 1943 Hepatitis B Screening 1961 Abdominal Aortic Aneurysm (A AA) Screen 2008 Well Visit 65+ 2008 Pneumococcal vaccine 65+ (2 of 2 - PCV20 or PCV21) 03/12/2019 03/12/2018 Influenza Vaccine (#1) 2024 7, 01/29/2016, 01/23/2015, Additional history exists DTaP/Tdap/Td Vaccine (2 - Td or Tdap) 01/30/2025 01/30/2015 Zoster Vaccine Completed 10/13/2018, 07/08/2018 Procedures Procedure Name Priority Date/Time Associated Diagnosis Comments DEVICE CHECK - REMOTE Routine 11/29/2024 11:14 AM CDT Status post placement of implantable loop recorder Cryptogenic stroke (HCC) DEVICE CHECK - REMOTE Routine 10/19/2024 2:05 PM CDT Status post placement of implantable loop recorder Cryptogenic stroke (HCC) from Last 3 Months Results * DEVICE CHECK - REMOTE (11/29/2024 11:14 AM CDT) Anatomical Region Laterality Modality Other Narrative 12/23/2024 12:40 PM CDT [employer] LINQ11 Loop Recorder. Dx; Cryptogenic stroke. DOI 10/01/2021-elsewhere. [facility] remote monitoring. Routine ILR remote. Normal device function. Battery function-good Presenting rhythm: NSR Medications: Eliquis 5 mg, atorvastatin 40 mg, carvedilol 6.25 mg Counters since last scheduled transmission on 10/17/24. --0 Tachy --0 Pierce --0 Pause --0 Symptom --702 AF - EGMs demonstrate AFib with the longest reported episode of 9 hours and 24 minutes. AFib burden 32.4% See scanned report. [facility] remote f/u 01/09/25. Viral Muro RN us Yfn Tesfaye MD [facility] PROC EDURES Final Result * DEVICE CHECK - REMOTE (10/19/2024 2:05 PM CDT) Anatomical Region Laterality Modality Other Narrative 11/11/2024 12:17 PM CDT [employer] LINQ11 Loop Recorder. Dx; Cryptogenic stroke. DOI 10/01/2021-elsewhere. [facility] remote monitoring. Routine ILR remote. Normal device function. Battery function-good Presenting rhythm: AFib Medications: Eliquis 5 mg, atorvastatin 40 mg, carvedilol 6.25 mg Counters since last scheduled transmission on 09/05/24. --0 Tachy --0 Pierce --6 Pause - available EGM demonstrates inappropriate detection due to undersensing --0 Symptom --1025 AF - EGM demonstrates AFib with the longest episode lasting 8 minutes and 50 seconds. AFib burden 42.1% See scanned report. [facility] remote f/u 11/28/24. Viral Muro RN Yfn Tesfaye MD [facility] PROC EDURES Final Result from Last 3 Months Insurance [facility] Address: [facility] [address] [place] [address] [facility] MEDIC[facility] Address: [address] [address] [place] [address] Care Teams Millinery Blocker Relationship Specialty Start Date End Date Salvador Marcano DO PCP - General 02/16/12
[2024-12-26 12:55] LABS: Hematocrit 44.7 % (42.0-52.0); Hemoglobin 14.4 g/dL (14.0-18.0); Immature Granulocyte Percent A 0.3 % (0-0.5); Lymphocytes Absolute Auto 1.37 K/mm3 (0.9-3.2); Mean Corpuscular HGB Conc 32.2 g/dl (32-36); Mean Corpuscular Hemoglobin 28.9 pg (26-34); Mean Corpuscular Volume 89.8 fl (80-100); Nucleated Red Blood Cells Absolute Auto 0.000 K/mm3 (0.0-0.012); Nucleated Red Blood Cells Perc 0.0 % (0.0-0.2); Platelet Count Result 177 k/mm3 (150-375); Red Blood Count 4.98 M/mm3 (4.6-6.20); White Blood Count 7.5 K/mm3 (4.5-10.0)
[2024-12-26 12:57] LABS: Add Urine Microscopic? YES; Appearance Urine Clear (Clear); Glucose Urine UA Negative (Negative); Leukocyte Esterase Ur Trace LEU/UL (Negative); Nitrate Urine Negative (Negative); Non Pathogenic Casts 0-2; Specific Grav Ur 1.018 (1.001-1.035)
[2024-12-26 13:23] LABS: Alanine Aminotransferase 28 U/L (6-50); Albumin Level 4.1 g/dL (3.5-5.1); Alkaline Phosphatase 91 U/L (38-126); Anion Gap 6 mmol/L (4-12); Aspartate Amino Transferase 45 U/L (17-59); Bilirubin,Total 0.6 mg/dL (0.2-1.3); Blood Urea Nitrogen 19 mg/dL (9-20); Calcium 9.0 mg/dL (8.4-10.2); Carbon Dioxide 27 mmol/L (22-30); Chloride 102 mmol/L (98-107); Estimated Glomerular Filt Rate > 60; Glucose 73 mg/dL (65-110); Potassium 3.8 mmol/L (3.4-5.0); Sodium 135 mmol/L (137-145); Total Protein 6.7 g/dL (6.3-8.2)
[2024-12-26 13:26] LABS: Free T3 3.43 pg/mL (2.34-5.61); Free T4 Free Thyroxine 1.09 ng/dL (0.78-2.19)
[2024-12-26 14:00] LABS: Prostate Specific Antigen 1.5 ng/mL (< OR = 4.0); Thyroid Stimulating Hormone 4.620 uIU/mL (0.465-4.680)
== END 2024-12-26 11:38 | disposition home or self-care (01) ==
LOC: ANHGOSHLAB 11:37
PROVIDERS: PCP Internal Medicine; Visit Provider Internal Medicine
DX: R35.89 Other polyuria (principal); I10 Essential (primary) hypertension; I48.19 Other persistent atrial fibrillation; Z79.01 Long term (current) use of anticoagulants; R97.20 Elevated prostate specific antigen [PSA]
CPT/HCPCS: 36415; 80053; 81001; 84153; 84439; 84443; 84481; 85025